=== PATIENT | female | born 1965 | race Caucasian/White ===

== ENCOUNTER 2019-04-10 18:03 | Observation (INO) | payer BC ==
[2019-04-10] MEDS ORDERED: Sodium Chloride 0.9% 2.5 ML Syringe FLUSH PRN (18:10)
[2019-04-10] MEDS ORDERED: Sodium Chloride 0.9% 10 ML Syringe FLUSH PRN (18:10)
[2019-04-10] MEDS ORDERED: Albuterol/Ipratropium 3.0-0.5 MG/3 ML Neb Soln NEB ONE (18:11)
[2019-04-10] MEDS ORDERED: methylPREDNISolone Sodium Succinate 125 MG/2 ML SDV IVPUSH ONE (18:11)
--- NOTE | 2019-04-10 18:14 | EDM.PDOC ---
ED HPI GENERAL MEDICAL PROBLEM - General Chief Complaint: Respiratory Problem Stated Complaint: PNEUMONIA SYMPTOMS Time Seen by Provider: 04/10/19 18:06 Source of Information: Reports: Patient History Limitations: Reports: No Limitations - History of Present Illness INITIAL COMMENTS - FREE TEXT/NARRATIVE: HISTORY AND PHYSICAL: History of present illness: Patient is a 53-year-old female who presents to the emergency room today with complaints of shortness of breath. She states her symptoms started approximately one month ago and have progressively gotten worse. She came to the emergency room today as she was unable to catch her breath after doing a DuoNeb treatment and she developed a subjective fever. She states she does have a history of pneumonia and sepsis. She does mention that she has blisters to her left palmar surface which she had "last time I had sepsis". Review of systems: As per history of present illness and below otherwise all systems reviewed and negative. Past medical history: As per history of present illness and as reviewed below otherwise noncontributory. Surgical history: As per history of present illness and as reviewed below otherwise noncontributory. Social history: See social history for further information Family history: As per history of present illness and as reviewed below otherwise noncontributory. Physical exam: General: Well-developed and well-nourished 53-year-old female. Alert and oriented. Nontoxic appearing and in no acute distress. HEENT: Atraumatic, normocephalic, pupils equal and reactive bilaterally, negative for conjunctival pallor or scleral icterus, mucous membranes moist, TMs normal bilaterally, throat clear, neck supple, nontender, trachea midline. No drooling or trismus noted. No meningeal signs. No hot potato voice noted. Lungs: Audible wheezing noted. Inspiratory and expiratory wheezing noted throughout, breath sounds equal bilaterally, chest nontender. Heart: S1S2, regular rate and rhythm without overt murmur Abdomen: Soft, nondistended, nontender. Negative for masses or hepatosplenomegaly. Negative for costovertebral tenderness. Skin: Intact, warm, dry. No lesions or rashes noted. Extremities: Atraumatic, moves all extremities per self without difficulty or deficits, negative for cords or calf pain. Neurovascular unremarkable. Neuro: Awake, alert, oriented. Cranial nerves II through XII unremarkable. Cerebellum unremarkable. Motor and sensory unremarkable throughout. Exam nonfocal. Notes: On room air patient is 90%. 2 L per nasal cannula was provided, currently 93%. Lung sounds have improved after the DuoNeb. Patient does have leukocytosis and x-ray that shows faint triangular in the right midlung which could represent a pulmonary nodule or minimal area of consolidation. Will add a d-dimer and CTA due to tachycardia. Blood cultures pending. CTA shows limited, nearly nondiagnostic evaluation for pulmonary emboli. No central pulmonary embolus seen. Irregular areas of ground-glass opacification and consolidation with a partial peribronchovascular distribution. Appearance is suggestive of bronchopneumonia. Mediastinal and right hilar adenopathy, presumed reactive to the pulmonary process.. Mild centrilobular emphysema. Dr. Singh was consult did on this patient. He is agreeable to keeping her for observation admission and antibiotics. Patient is aware and agreeable to plan of care. Diagnostics: CBC, CMP, EKG, chest x-ray, troponin, lactic acid, blood cultures 2 Therapeutics: Solu-Medrol, DuoNeb, Rocephin, Azithromax Impression: Hypoxemia Bronchopneumonia Plan: Observation admission with telemetry Definitive disposition and diagnosis as appropriate pending reevaluation and review of above. Chest Pain Score (Numeric/FACES): 4 - Related Data Allergies Allergy/AdvReac Type Severity Reaction Status Date / Time Penicillins Allergy Rash Verified 04/10/19 18:06 Home Meds: Home Meds Aspirin 81 mg PO DAILY 05/22/18 [History] Pnv No.122/Iron/Folic Acid [ Multi Tablet] 1 tab PO DAILY 05/22/18 [ History] Past Medical History [employer] History: Reports: Ectopic , Spontaneous - Past Surgical History Female Surgical History: Reports: Oophorectomy Other Female Surgeries/Procedures: R fallopian tube and ovary removal Social & Family History - Family History Family Medical History: Noncontributory - Caffeine Use Caffeine Use: Reports: Soda ED ROS GENERAL - Review of Systems Review Of Systems: ROS reveals no pertinent complaints other than HPI. ED EXAM, GENERAL - Physical Exam Exam: See Below (See dictation) Course - Vital Signs Last Recorded V/S: Last Vital Signs Temp 98.2 F 04/10/19 20:10 Pulse 104 H 04/10/19 20:10 Resp 22 H 04/10/19 20:10 BP 111/77 04/10/19 20:10 Pulse Ox 92 L 04/10/19 20:10 - Orders/Labs/Meds Orders: Active Orders 24 hr Category Date Time Status EKG Documentation Completion [RC] STAT Care 04/10/19 18:10 Active RT Aerosol Therapy [RC] ASDIRECTED Care 04/10/19 18:11 Active CULTURE BLOOD [BC] Stat Lab 04/10/19 18:15 Received CULTURE BLOOD [BC] Stat Lab 04/10/19 18:35 Received Sodium Chloride 0.9% [Saline Flush] Med 04/10/19 18:10 Active 10 ml FLUSH ASDIRECTED PRN Sodium Chloride 0.9% [Saline Flush] Med 04/10/19 18:10 Active 2.5 ml FLUSH ASDIRECTED PRN Blood Culture x2 Reflex Set [OM.PC] Stat Oth 04/10/19 18:10 Ordered Saline Lock Insert [OM.PC] Stat Oth 04/10/19 18:10 Ordered Medication Orders Sodium Chloride (Normal Saline) 1,000 mls @ 125 mls/hr IV STAT ONE Stop: 04/11/19 03:05 Last Admin: 04/10/19 19:09 Dose: 125 mls/hr Sodium Chloride (Saline Flush) 10 ml FLUSH ASDIRECTED PRN PRN Reason: Keep Vein Open Sodium Chloride (Saline Flush) 2.5 ml FLUSH ASDIRECTED PRN PRN Reason: Keep Vein Open Labs: Laboratory Tests 04/10/19 04/10/19 04/10/19 Range/Units 18:15 18:15 18:15 WBC 21.03 H (4.0-11.0) K/uL RBC 4.81 (4.30-5.90) M/uL Hgb 14.1 (12.0-16.0) g/dL Hct 43.7 (36.0-46.0) % MCV 90.9 (80.0-98.0) fL MCH 29.3 (27.0-32.0) pg MCHC 32.3 (31.0-37.0) g/dL RDW Std Deviation 49.4 (28.0-62.0) fl RDW Coeff of Sammy 15 (11.0-15.0) % Plt Count 338 (150-400) K/uL MPV 10.20 (7.40-12.00) fL Add Manual Diff YES Neutrophils % (Manual) 74 (48.0-80.0) % Band Neutrophils % 4 % Lymphocytes % (Manual) 17 (16.0-40.0) % Monocytes % (Manual) 5 (0.0-15.0) % Nucleated RBC % 0.0 /100WBC Absolute Seg Neuts 15.6 H (1.4-5.7) Band Neutrophils # 0.8 Lymphocytes # (Manual) 3.6 H (0.6-2.4) Monocytes # (Manual) 1.1 H (0.0-0.8) Nucleated RBCs # 0 K/uL Lactate 1.3 (0.20-2.00) mmol/L Sodium 140 (136-145) mmol/L Potassium 4.1 (3.5-5.1) mmol/L Chloride 103 (98-107) mmol/L Carbon Dioxide 26.1 (21.0-32.0) mmol/L BUN 13 (7.0-18.0) mg/dL Creatinine 1.0 (0.6-1.0) mg/dL Est Cr Clr Drug Dosing TNP Estimated GFR (MDRD) 58.5 ml/min Glucose 124 H (74-106) mg/dL Calcium 8.7 (8.5-10.1) mg/dL Total Bilirubin 0.2 (0.2-1.0) mg/dL AST 19 (15-37) IU/L ALT 25 (14-63) IU/L Alkaline Phosphatase 110 (46-116) U/L Troponin I < 0.050 (0.000-0.056) ng/mL Total Protein 7.0 (6.4-8.2) g/dL Albumin 2.9 L (3.4-5.0) g/dL Globulin 4.1 H (2.6-4.0) g/dL Albumin/Globulin Ratio 0.7 L (0.9-1.6) Meds: Medications Generic Name Dose Route Start Last Admin Trade Name Freq PRN Reason Stop Dose Admin Sodium Chloride 1,000 mls @ 125 mls/hr 04/10/19 19:06 04/10/19 19:09 Normal Saline IV 04/11/19 03:05 125 mls/hr STAT ONE Administration Sodium Chloride 10 ml 04/10/19 18:10 Saline Flush FLUSH ASDIRECTED PRN Keep Vein Open Sodium Chloride 2.5 ml 04/10/19 18:10 Saline Flush FLUSH ASDIRECTED PRN Keep Vein Open Discontinued Medications Generic Name Dose Route Start Last Admin Trade Name Wiltonq PRN Reason Stop Dose Admin Albuterol/Ipratropium 3 ml 04/10/19 18:11 04/10/19 18:59 Duoneb 3.0-0.5 Mg/3 Ml NEB 04/10/19 18:12 3 ml ONETIME ONE Administration Azithromycin 500 mg 04/10/19 19:00 04/10/19 19:10 Zithromax PO 04/10/19 19:01 500 mg NOW ONE Administration Ceftriaxone Sodium/Dextrose 1 50 mls @ 100 mls/hr 04/10/19 18:58 04/10/19 19: 10 gm/ Premix IV 04/10/19 19:27 100 mls/hr ONETIME ONE Administration Iopamidol 80 ml 04/10/19 19:48 04/10/19 19:48 Isovue Multipack-370 (76%) IVPUSH 04/10/19 19:49 80 ml ONETIME STA Administration Methylprednisolone Sodium Succinate 125 mg 04/10/19 18:11 04/10/19 18:59 Solu-Medrol IVPUSH 04/10/19 18:12 125 mg ONETIME ONE Administration Departure - Departure Time of Disposition: 21:05 Disposition: Refer to Observation Clinical Impression: Bronchopneumonia, Hypoxemia - Discharge Information - My Orders Last 24 Hours: My Active Orders 04/10/19 18:10 EKG Documentation Completion [RC] STAT Sodium Chloride 0.9% [Saline Flush] 10 ml FLUSH ASDIRECTED PRN Sodium Chloride 0.9% [Saline Flush] 2.5 ml FLUSH ASDIRECTED PRN Blood Culture x2 Reflex Set [OM.PC] Stat Saline Lock Insert [OM.PC] Stat 04/10/19 18:11 RT Aerosol Therapy [RC] ASDIRECTED 04/10/19 18:15 CULTURE BLOOD [BC] Stat 04/10/19 18:35 CULTURE BLOOD [BC] Stat - Assessment/Plan Last 24 Hours: My Active Orders 04/10/19 18:10 EKG Documentation Completion [RC] STAT Sodium Chloride 0.9% [Saline Flush] 10 ml FLUSH ASDIRECTED PRN Sodium Chloride 0.9% [Saline Flush] 2.5 ml FLUSH ASDIRECTED PRN Blood Culture x2 Reflex Set [OM.PC] Stat Saline Lock Insert [OM.PC] Stat 04/10/19 18:11 RT Aerosol Therapy [RC] ASDIRECTED 04/10/19 18:15 CULTURE BLOOD [BC] Stat 04/10/19 18:35 CULTURE BLOOD [BC] Stat
--- NOTE | 2019-04-10 18:51 | CR ---
INDICATION: Chest pain and shortness of breath TECHNIQUE: Chest 1 view COMPARISON: None FINDINGS: Cardiovascular and mediastinum: Heart size and vasculature are normal in caliber and appearance. Lungs and pleural spaces: No pleural effusion or pneumothorax. Faint triangular area right midlung measuring 8 millimeters. Bones and soft tissues: No significant findings. IMPRESSION: Faint triangular in the right midlung which could represent a pulmonary nodule or minimal area of consolidation. Follow-up chest x-ray suggested in 1 month to assess for resolution. Dictated by Antonino Dutton MD @ Apr 10 2019 6:49PM Signed by Dr. Antonino Dutton @ Apr 10 2019 6:50PM
[2019-04-10 18:52] LABS: BLOOD UREA NITROGEN,BUN 13 mg/dL (7.0-18.0); CARBON DIOXIDE,CO2 26.1 mmol/L (21.0-32.0); CHLORIDE,CL 103 mmol/L (98-107); GLUCOSE RANDOM 124 mg/dL (74-106); POTASSIUM,K 4.1 mmol/L (3.5-5.1); SODIUM,NA 140 mmol/L (136-145)
[2019-04-10] MEDS ORDERED: cefTRIAXone 1 GM in Premix Bag 1 BAG IV ONE (18:58)
[2019-04-10] MEDS ORDERED: Azithromycin 250 MG Tab PO ONE (19:00)
[2019-04-10] MEDS ORDERED: Sodium Chloride 0.9% 1,000 ML IV ONE (19:06)
[2019-04-10] MEDS ORDERED: Iopamidol 755 MG/ML 500 ML Multipack Bottle IVPUSH STA (19:48)
--- NOTE | 2019-04-10 20:31 | CT ---
INDICATION: Chest pain and shortness of breath. TECHNIQUE: CT chest PE was acquired with 80 cc Isovue 370 intravenous contrast. COMPARISON: None. FINDINGS: Heart and vasculature: Inadequate opacification of the pulmonary artery. Examination is only considered adequate at the central vessels and nondiagnostic for more distal vasculature. No proximal pulmonary embolus seen. Thoracic aorta is normal in caliber. No pericardial effusion. Lungs and pleural: No pleural effusion or pneumothorax. Mild centrilobular emphysema with bilateral areas of irregular ground-glass as well as consolidation. Distribution appears to be peribronchovascular. Lymph nodes/mediastinum: Subcarinal lymph nodes measure up to 11 millimeters. Right hilar lymph nodes measure 12 millimeters. Chest wall: No masses. Upper abdomen: Normal. Bones: Unremarkable for age. IMPRESSION: 1. Limited, nearly nondiagnostic evaluation for pulmonary emboli. No central pulmonary embolus seen. 2. Irregular areas of ground-glass opacification and consolidation with a partial peribronchovascular distribution. Appearance is suggestive of bronchopneumonia. 3. Mediastinal and right hilar adenopathy, presumed reactive to the pulmonary process. 4. Mild centrilobular emphysema. Please note that all CT scans at this facility use dose modulation, iterative reconstruction, and/or weight-based dosing when appropriate to reduce radiation dose to as low as reasonably achievable. Dictated by Antonino Dutton MD @ Apr 10 2019 8:23PM Signed by Dr. Antonino Dutton @ Apr 10 2019 8:29PM
[2019-04-10] MEDS ORDERED: oxyCODONE 5 MG Tab PO PRN (21:46)
[2019-04-10] MEDS ORDERED: Acetaminophen 325 MG Tab PO PRN (21:47)
[2019-04-11] MEDS: Albuterol/Ipratropium 3.0-0.5 MG/3 ML Neb Soln NEB PRN ×2 (05:22→10:02)
[2019-04-11 06:47] LABS: BLOOD UREA NITROGEN,BUN 17 mg/dL (7.0-18.0); CARBON DIOXIDE,CO2 25.9 mmol/L (21.0-32.0); CHLORIDE,CL 104 mmol/L (98-107); GLUCOSE RANDOM 165 mg/dL (74-106); POTASSIUM,K 4.4 mmol/L (3.5-5.1); SODIUM,NA 140 mmol/L (136-145)
--- NOTE | 2019-04-11 08:58 | PCM.HP.2 ---
Addendum entered and electronically signed by Terri Boyd MD 04/11/19 10:29 : Assessment: Leukocytosis : improving since admission Elevated D-dimer: negative for emboli via Angiogram Lactate WNL Hyperglycemia Original Note: <Terri Boyd - Last Filed: 04/11/19 10:01> H&P History of Present Illness - General Date of Service: 04/11/19 Admit Problem/Dx: Admission Diagnosis/Problem Admission Diagnosis/Problem Hypoxemia Patient is a 53-year-old female with a past medical history of asthma, former smoker, recent after age of 47 via IVF; presenting to [facility] with increasing shortness of breath, mildly productive cough, subjective fever and chills and wheezing 5-6 days. Consult to telemedicine; was prescribed Mucinex and Robitussin with moderate improvement of her cough however shortness of breath especially with exertion had worsened. Patient does endorse multiple pneumonias over the course of 15 years for your intervals without any obvious etiologies. Patient was a former smoker; smoked 1 pack per day since the age of 17 to the age of 29; states however she does not use tobacco products for many years now. Of note, states her son had a cough for about 2 weeks without any other symptoms and has been improving. Otherwise has no other concerns at this time. Chest Pain Score (Numeric/FACES): 4 - Related Data Allergies/Adverse Reactions: Allergies Allergy/AdvReac Type Severity Reaction Status Date / Time Penicillins Allergy Rash Verified 04/10/19 21:42 Home Medications: Home Meds Albuterol Sulfate [Proair Hfa] 2 puff INH Q6HR PRN 04/10/19 [History] Ascorbic Acid [Vitamin C] 1,000 mg PO DAILY 04/10/19 [History] Biotin 5,000 mcg PO DAILY 04/10/19 [History] Cholecalciferol (Vitamin D3) [Vitamin D] 5,000 units PO DAILY 04/10/19 [History] Ibuprofen 800 mg PO Q6HR PRN 04/10/19 [History] Past Medical History HEENT History: Reports: Impaired Vision Cardiovascular History: Reports: Heart Murmur Respiratory History: Reports: Pneumonia, Recurrent [employer] History: Reports: Ectopic , Spontaneous Endocrine/Metabolic History: Reports: Diabetes, Gestational - Infectious Disease History Infectious Disease History: Reports: Scarlet Fever - Past Surgical History HEENT Surgical History: Reports: None Cardiovascular Surgical History: Reports: None Respiratory Surgical History: Reports: None Female Surgical History: Reports: Oophorectomy Other Female Surgeries/Procedures: R fallopian tube and ovary removal Endocrine Surgical History: Reports: None Social & Family History - Family History Family Medical History: Noncontributory - Tobacco Use Smoking Status *Q: Former Smoker Years of Tobacco use: 10 Used Tobacco, but Quit: Yes Month/Year Tobacco Last Used: 1991 Second Hand Smoke Exposure: No - Caffeine Use Caffeine Use: Reports: Coffee, Energy Drinks - Recreational Drug Use Recreational Drug Use: No H&P Review of Systems - Review of Systems: Review Of Systems: See Below General: Reports: Chills. Denies: Fever HEENT: Reports: Post Nasal Drip, Sinus Congestion. Denies: Sore Throat Pulmonary: Reports: Wheezing, Cough, Sputum. Denies: Shortness of Breath Cardiovascular: Reports: Dyspnea on Exertion. Denies: Chest Pain, Palpitations Gastrointestinal: Reports: Diarrhea. Denies: Abdominal Pain, Anorexia, Constipation, Nausea Genitourinary: Reports: No Symptoms Musculoskeletal: Reports: No Symptoms Skin: Reports: Rash (left hand healing blisters ) Psychiatric: Reports: No Symptoms Neurological: Reports: No Symptoms Exam - Exam Exam: See Below - Vital Signs Vital Signs: Last Vital Signs Temp 97.8 F 04/11/19 08:00 Pulse 82 04/11/19 08:00 Resp 20 04/11/19 08:00 BP 106/63 04/11/19 08:00 Pulse Ox 92 L 04/11/19 08:00 Weight: 78.789 kg - Exam Quality Assessment: Supplemental Oxygen General: Alert, Oriented HEENT: Conjunctiva Clear, EOMI, Mucosa Moist & [place] Neck: Supple, Trachea Midline Lungs: Crackles, Rhonchi, Wheezing (inspiratory and expiratory wheezing in all lung [place] ) GI/Abdominal Exam: Normal Bowel Sounds, Soft, Non-Tender, No Organomegaly Back Exam: Normal Inspection Extremities: Normal Inspection, Normal Range of Motion Skin: Warm, Dry, Intact Neurological: Cranial Nerves Intact Neuro Extensive - Mental Status: Alert, Oriented x3, Normal Mood/Affect Psychiatric: Alert, Normal Affect, Normal Mood - Patient Data Lab Results Last 24 hrs: Laboratory Results - last 24 hr 04/10/19 04/10/19 04/10/19 Range/Units 18:15 18:15 18:15 WBC 21.03 H (4.0-11.0) K/uL RBC 4.81 (4.30-5.90) M/uL Hgb 14.1 (12.0-16.0) g/dL Hct 43.7 (36.0-46.0) % MCV 90.9 (80.0-98.0) fL MCH 29.3 (27.0-32.0) pg MCHC 32.3 (31.0-37.0) g/dL RDW Std Deviation 49.4 (28.0-62.0) fl RDW Coeff of Sammy 15 (11.0-15.0) % Plt Count 338 (150-400) K/uL MPV 10.20 (7.40-12.00) fL Neut % (Auto) (48.0-80.0) % Lymph % (Auto) (16.0-40.0) % [place] % (Auto) (0.0-15.0) % Eos % (Auto) (0.0-7.0) % Baso % (Auto) (0.0-1.5) % Neut # (Auto) (1.4-5.7) K/uL Lymph # (Auto) (0.6-2.4) K/uL [place] # (Auto) (0.0-0.8) K/uL Eos # (Auto) (0.0-0.7) K/uL Baso # (Auto) (0.0-0.1) K/uL Add Manual Diff YES Neutrophils % (Manual) 74 (48.0-80.0) % Band Neutrophils % 4 % Lymphocytes % (Manual) 17 (16.0-40.0) % Monocytes % (Manual) 5 (0.0-15.0) % Nucleated RBC % 0.0 /100WBC Absolute Seg Neuts 15.6 H (1.4-5.7) Band Neutrophils # 0.8 Lymphocytes # (Manual) 3.6 H (0.6-2.4) Monocytes # (Manual) 1.1 H (0.0-0.8) Nucleated RBCs # 0 K/uL D-Dimer, Quantitative (0.0-0.50) mg/L FEU Lactate 1.3 (0.20-2.00) mmol/L Sodium 140 (136-145) mmol/L Potassium 4.1 (3.5-5.1) mmol/L Chloride 103 (98-107) mmol/L Carbon Dioxide 26.1 (21.0-32.0) mmol/L BUN 13 (7.0-18.0) mg/dL Creatinine 1.0 (0.6-1.0) mg/dL Est Cr Clr Drug Dosing TNP Estimated GFR (MDRD) 58.5 ml/min Glucose 124 H (74-106) mg/dL Calcium 8.7 (8.5-10.1) mg/dL Total Bilirubin 0.2 (0.2-1.0) mg/dL AST 19 (15-37) IU/L ALT 25 (14-63) IU/L Alkaline Phosphatase 110 (46-116) U/L Troponin I < 0.050 (0.000-0.056) ng/mL Total Protein 7.0 (6.4-8.2) g/dL Albumin 2.9 L (3.4-5.0) g/dL Globulin 4.1 H (2.6-4.0) g/dL Albumin/Globulin Ratio 0.7 L (0.9-1.6) 04/10/19 04/11/19 04/11/19 Range/Units 19:20 06:03 06:03 WBC 17.87 H (4.0-11.0) K/uL RBC 4.70 (4.30-5.90) M/uL Hgb 13.5 (12.0-16.0) g/dL Hct 42.7 (36.0-46.0) % MCV 90.9 (80.0-98.0) fL MCH 28.7 (27.0-32.0) pg MCHC 31.6 (31.0-37.0) g/dL RDW Std Deviation 48.8 (28.0-62.0) fl RDW Coeff of Sammy 15 (11.0-15.0) % Plt Count 363 (150-400) K/uL MPV 9.80 (7.40-12.00) fL Neut % (Auto) 89.7 H (48.0-80.0) % Lymph % (Auto) 8.9 L (16.0-40.0) % [place] % (Auto) 1.3 (0.0-15.0) % Eos % (Auto) 0.0 (0.0-7.0) % Baso % (Auto) 0.1 (0.0-1.5) % Neut # (Auto) 16.0 H (1.4-5.7) K/uL Lymph # (Auto) 1.6 (0.6-2.4) K/uL [place] # (Auto) 0.2 (0.0-0.8) K/uL Eos # (Auto) 0.0 (0.0-0.7) K/uL Baso # (Auto) 0.0 (0.0-0.1) K/uL Add Manual Diff Neutrophils % (Manual) (48.0-80.0) % Band Neutrophils % % Lymphocytes % (Manual) (16.0-40.0) % Monocytes % (Manual) (0.0-15.0) % Nucleated RBC % 0.0 /100WBC Absolute Seg Neuts (1.4-5.7) Band Neutrophils # Lymphocytes # (Manual) (0.6-2.4) Monocytes # (Manual) (0.0-0.8) Nucleated RBCs # 0 K/uL D-Dimer, Quantitative 0.55 H (0.0-0.50) mg/L FEU Lactate (0.20-2.00) mmol/L Sodium 140 (136-145) mmol/L Potassium 4.4 (3.5-5.1) mmol/L Chloride 104 (98-107) mmol/L Carbon Dioxide 25.9 (21.0-32.0) mmol/L BUN 17 (7.0-18.0) mg/dL Creatinine 0.8 (0.6-1.0) mg/dL Est Cr Clr Drug Dosing 71.84 Estimated GFR (MDRD) > 60.0 ml/min Glucose 165 H (74-106) mg/dL Calcium 8.6 (8.5-10.1) mg/dL Total Bilirubin 0.2 (0.2-1.0) mg/dL AST 14 L (15-37) IU/L ALT 24 (14-63) IU/L Alkaline Phosphatase 105 (46-116) U/L Troponin I (0.000-0.056) ng/mL Total Protein 6.9 (6.4-8.2) g/dL Albumin 2.7 L (3.4-5.0) g/dL Globulin 4.2 H (2.6-4.0) g/dL Albumin/Globulin Ratio 0.6 L (0.9-1.6) Result Diagrams: 04/11/19 06:03 04/11/19 06:03 - Problem List (1) Bronchopneumonia SNOMED Code(s): 885337522 ICD Code: J18.0 - BRONCHOPNEUMONIA, UNSPECIFIED ORGANISM Status: Acute Current Visit: Yes (2) Hypoxemia SNOMED Code(s): 198119936 ICD Code: R09.02 - HYPOXEMIA Status: Acute Current Visit: Yes Problem List Initiated/Reviewed/Updated: Yes Orders Last 24hrs: Active Orders 24 hr Category Date Time Status Admission Status [Patient Status] [ADT] Stat ADT 04/10/19 19:04 Active Cardiac Monitoring [RC] . DIRECTED Care 04/10/19 19:04 Active Oxygen Therapy Adult [Oxygen Therapy] [RC] ASDIRECTED Care 04/10/19 21:54 Active RT Aerosol Therapy [RC] ASDIRECTED Care 04/10/19 18:11 Active Regular Diet [DIET] Diet 04/11/19 Breakfast Active CULTURE BLOOD [BC] Stat Lab 04/10/19 18:15 Received CULTURE BLOOD [BC] Stat Lab 04/10/19 18:35 Received Acetaminophen [Tylenol] Med 04/10/19 21:47 Active 650 mg PO Q6H PRN Albuterol/Ipratropium [DuoNeb 3.0-0.5 MG/3 ML] Med 04/10/19 21:58 Active 3 ml NEB Q4HRRT PRN Levofloxacin/Dextrose 5%-Water [Levaquin in D5W 500 MG/ Med 04/11/19 09:00 Active 100 ML] 500 mg Premix Bag 1 bag IV Q24H Sodium Chloride 0.9% [Normal Saline] 1,000 ml Med 04/10/19 22:00 Active IV ASDIRECTED Sodium Chloride 0.9% [Saline Flush] Med 04/10/19 18:10 Active 10 ml FLUSH ASDIRECTED PRN Sodium Chloride 0.9% [Saline Flush] Med 04/10/19 18:10 Active 2.5 ml FLUSH ASDIRECTED PRN oxyCODONE Med 04/10/19 21:46 Active 5 mg PO Q6H PRN Blood Culture x2 Reflex Set [OM.PC] Stat Oth 04/10/19 18:10 Ordered Saline Lock Insert [OM.PC] Stat Oth 04/10/19 18:10 Ordered Medication Orders Acetaminophen (Tylenol) 650 mg PO Q6H PRN PRN Reason: Pain/Fever Albuterol/Ipratropium (Duoneb 3.0-0.5 Mg/3 Ml) 3 ml NEB Q4HRRT PRN PRN Reason: Wheezing Last Admin: 04/11/19 05:22 Dose: 3 ml Levofloxacin/Dextrose 500 mg/ (Premix) 100 mls @ 100 mls/hr IV Q24H ANASTASIA Sodium Chloride (Normal Saline) 1,000 mls @ 75 mls/hr IV ASDIRECTED ANASTASIA Oxycodone HCl (Oxycodone) 5 mg PO Q6H PRN PRN Reason: Pain Sodium Chloride (Saline Flush) 10 ml FLUSH ASDIRECTED PRN PRN Reason: Keep Vein Open Sodium Chloride (Saline Flush) 2.5 ml FLUSH ASDIRECTED PRN PRN Reason: Keep Vein Open Assessment/Plan Comment:: Assessment: 1. Acute hypoxic respiratory failure secondary to bronchopneumonia 2. PMH: Asthma, x 3 after age 47, obesity, former tobacco user Plan: ADmit to observation. Full code, Intake output per routine. Vitals per routine. telemetry. GI prophylaxis: pantoprazole 40 daily. DVT prophylaxis: 40 lovenox daily. Diet: heart healthy. Activity : up ad cesar 1. Initiate patient on Ceftriaxone and azithromycin. Continue duonebs q4hrs per RT. Supplemental O2. CXR: ground glass opacities w/ right middle lobe infiltrate 2. Concerns for etiology for repeat CAP; will consider immunoglobulin assay. 3. PRN: tylenol, colace, restoril, guaifenesin <Rashid Singh - Last Filed: 04/11/19 11:17> H&P History of Present Illness - General Admit Problem/Dx: Admission Diagnosis/Problem Admission Diagnosis/Problem Hypoxemia I have seen and examined the patient independently of medical scientist, Dr. Oliver MD. I have reviewed and agree with the plan of care as outlined for this patient by him. I have discussed the case with him. Please see orders. Exam - Vital Signs Vital Signs: Last Vital Signs Temp 36.6 C 04/11/19 08:00 Pulse 82 04/11/19 08:00 Resp 20 04/11/19 08:00 BP 106/63 04/11/19 08:00 Pulse Ox 92 L 04/11/19 08:00 - Patient Data Lab Results Last 24 hrs: Laboratory Results - last 24 hr 04/10/19 04/10/19 04/10/19 Range/Units 18:15 18:15 18:15 WBC 21.03 H (4.0-11.0) K/uL RBC 4.81 (4.30-5.90) M/uL Hgb 14.1 (12.0-16.0) g/dL Hct 43.7 (36.0-46.0) % MCV 90.9 (80.0-98.0) fL MCH 29.3 (27.0-32.0) pg MCHC 32.3 (31.0-37.0) g/dL RDW Std Deviation 49.4 (28.0-62.0) fl RDW Coeff of Sammy 15 (11.0-15.0) % Plt Count 338 (150-400) K/uL MPV 10.20 (7.40-12.00) fL Neut % (Auto) (48.0-80.0) % Lymph % (Auto) (16.0-40.0) % [place] % (Auto) (0.0-15.0) % Eos % (Auto) (0.0-7.0) % Baso % (Auto) (0.0-1.5) % Neut # (Auto) (1.4-5.7) K/uL Lymph # (Auto) (0.6-2.4) K/uL [place] # (Auto) (0.0-0.8) K/uL Eos # (Auto) (0.0-0.7) K/uL Baso # (Auto) (0.0-0.1) K/uL Add Manual Diff YES Neutrophils % (Manual) 74 (48.0-80.0) % Band Neutrophils % 4 % Lymphocytes % (Manual) 17 (16.0-40.0) % Monocytes % (Manual) 5 (0.0-15.0) % Nucleated RBC % 0.0 /100WBC Absolute Seg Neuts 15.6 H (1.4-5.7) Band Neutrophils # 0.8 Lymphocytes # (Manual) 3.6 H (0.6-2.4) Monocytes # (Manual) 1.1 H (0.0-0.8) Nucleated RBCs # 0 K/uL D-Dimer, Quantitative (0.0-0.50) mg/L FEU Lactate 1.3 (0.20-2.00) mmol/L Sodium 140 (136-145) mmol/L Potassium 4.1 (3.5-5.1) mmol/L Chloride 103 (98-107) mmol/L Carbon Dioxide 26.1 (21.0-32.0) mmol/L BUN 13 (7.0-18.0) mg/dL Creatinine 1.0 (0.6-1.0) mg/dL Est Cr Clr Drug Dosing TNP Estimated GFR (MDRD) 58.5 ml/min Glucose 124 H (74-106) mg/dL Calcium 8.7 (8.5-10.1) mg/dL Total Bilirubin 0.2 (0.2-1.0) mg/dL AST 19 (15-37) IU/L ALT 25 (14-63) IU/L Alkaline Phosphatase 110 (46-116) U/L Troponin I < 0.050 (0.000-0.056) ng/mL Total Protein 7.0 (6.4-8.2) g/dL Albumin 2.9 L (3.4-5.0) g/dL Globulin 4.1 H (2.6-4.0) g/dL Albumin/Globulin Ratio 0.7 L (0.9-1.6) 04/10/19 04/11/19 04/11/19 Range/Units 19:20 06:03 06:03 WBC 17.87 H (4.0-11.0) K/uL RBC 4.70 (4.30-5.90) M/uL Hgb 13.5 (12.0-16.0) g/dL Hct 42.7 (36.0-46.0) % MCV 90.9 (80.0-98.0) fL MCH 28.7 (27.0-32.0) pg MCHC 31.6 (31.0-37.0) g/dL RDW Std Deviation 48.8 (28.0-62.0) fl RDW Coeff of Sammy 15 (11.0-15.0) % Plt Count 363 (150-400) K/uL MPV 9.80 (7.40-12.00) fL Neut % (Auto) 89.7 H (48.0-80.0) % Lymph % (Auto) 8.9 L (16.0-40.0) % [place] % (Auto) 1.3 (0.0-15.0) % Eos % (Auto) 0.0 (0.0-7.0) % Baso % (Auto) 0.1 (0.0-1.5) % Neut # (Auto) 16.0 H (1.4-5.7) K/uL Lymph # (Auto) 1.6 (0.6-2.4) K/uL [place] # (Auto) 0.2 (0.0-0.8) K/uL Eos # (Auto) 0.0 (0.0-0.7) K/uL Baso # (Auto) 0.0 (0.0-0.1) K/uL Add Manual Diff Neutrophils % (Manual) (48.0-80.0) % Band Neutrophils % % Lymphocytes % (Manual) (16.0-40.0) % Monocytes % (Manual) (0.0-15.0) % Nucleated RBC % 0.0 /100WBC Absolute Seg Neuts (1.4-5.7) Band Neutrophils # Lymphocytes # (Manual) (0.6-2.4) Monocytes # (Manual) (0.0-0.8) Nucleated RBCs # 0 K/uL D-Dimer, Quantitative 0.55 H (0.0-0.50) mg/L FEU Lactate (0.20-2.00) mmol/L Sodium 140 (136-145) mmol/L Potassium 4.4 (3.5-5.1) mmol/L Chloride 104 (98-107) mmol/L Carbon Dioxide 25.9 (21.0-32.0) mmol/L BUN 17 (7.0-18.0) mg/dL Creatinine 0.8 (0.6-1.0) mg/dL Est Cr Clr Drug Dosing 71.84 Estimated GFR (MDRD) > 60.0 ml/min Glucose 165 H (74-106) mg/dL Calcium 8.6 (8.5-10.1) mg/dL Total Bilirubin 0.2 (0.2-1.0) mg/dL AST 14 L (15-37) IU/L ALT 24 (14-63) IU/L Alkaline Phosphatase 105 (46-116) U/L Troponin I (0.000-0.056) ng/mL Total Protein 6.9 (6.4-8.2) g/dL Albumin 2.7 L (3.4-5.0) g/dL Globulin 4.2 H (2.6-4.0) g/dL Albumin/Globulin Ratio 0.6 L (0.9-1.6) Result Diagrams: 04/11/19 06:03 04/11/19 06:03 Orders Last 24hrs: Active Orders 24 hr Category Date Time Status Admission Status [Patient Status] [ADT] Stat ADT 04/10/19 19:04 Active Cardiac Monitoring [RC] . DIRECTED Care 04/10/19 19:04 Active Oxygen Therapy Adult [Oxygen Therapy] [RC] ASDIRECTED Care 04/10/19 21:54 Active RT Aerosol Therapy [RC] ASDIRECTED Care 04/10/19 18:11 Active RT Aerosol Therapy [RC] ASDIRECTED Care 04/11/19 10:09 Active Regular Diet [DIET] Diet 04/11/19 Breakfast Active CULTURE BLOOD [BC] Stat Lab 04/10/19 18:15 Received CULTURE BLOOD [BC] Stat Lab 04/10/19 18:35 Received GLYCOSYLATED HEMOGLOBIN,HGBA1C [CHEM] Routine Lab 04/11/19 06:03 Received LEGIONELLA ANTIGEN [RM] Routine Lab 04/11/19 09:30 Ordered Acetaminophen [Tylenol] Med 04/10/19 21:47 Active 650 mg PO Q6H PRN Albuterol/Ipratropium [DuoNeb 3.0-0.5 MG/3 ML] Med 04/11/19 14:00 Active 3 ml NEB Q4HRRT Albuterol/Ipratropium [DuoNeb 3.0-0.5 MG/3 ML] Med 04/10/19 21:58 Active 3 ml NEB Q4HRRT PRN Azithromycin [Zithromax] 500 mg Med 04/11/19 19:30 Active Sodium Chloride 0.9% [Normal Saline (AdvBag)] 250 ml IV DAILY@1930 Sodium Chloride 0.9% [Normal Saline] 1,000 ml Med 04/10/19 22:00 Active IV ASDIRECTED Sodium Chloride 0.9% [Saline Flush] Med 04/10/19 18:10 Active 10 ml FLUSH ASDIRECTED PRN Sodium Chloride 0.9% [Saline Flush] Med 04/10/19 18:10 Active 2.5 ml FLUSH ASDIRECTED PRN cefTRIAXone [Rocephin in Dextrose,Iso-Osm 1 GM/50 ML] 1 Med 04/11/19 19:00 Active gm Premix Bag 1 bag IV Q24H oxyCODONE Med 04/10/19 21:46 Active 5 mg PO Q6H PRN Blood Culture x2 Reflex Set [OM.PC] Stat Ot 04/10/19 18:10 Ordered Saline Lock Insert [OM.PC] Stat Ot 04/10/19 18:10 Ordered Medication Orders Acetaminophen (Tylenol) 650 mg PO Q6H PRN PRN Reason: Pain/Fever Albuterol/Ipratropium (Duoneb 3.0-0.5 Mg/3 Ml) 3 ml NEB Q4HRRT PRN PRN Reason: Wheezing Last Admin: 04/11/19 10:02 Dose: 3 ml Admin: 04/11/19 05:22 Dose: 3 ml Albuterol/Ipratropium (Duoneb 3.0-0.5 Mg/3 Ml) 3 ml NEB Q4HRRT [facility] Sodium Chloride (Normal Saline) 1,000 mls @ 75 mls/hr IV ASDIRECTED ANASTASIA Last Admin: 04/11/19 09:48 Dose: 75 mls/hr Ceftriaxone Sodium/Dextrose 1 (gm/ Premix) 50 mls @ 100 mls/hr IV Q24H ANASTASIA Azithromycin 500 mg/ Sodium (Chloride) 250 mls @ 250 mls/hr IV DAILY@1930 ANASTASIA Oxycodone HCl (Oxycodone) 5 mg PO Q6H PRN PRN Reason: Pain Sodium Chloride (Saline Flush) 10 ml FLUSH ASDIRECTED PRN PRN Reason: Keep Vein Open Sodium Chloride (Saline Flush) 2.5 ml FLUSH ASDIRECTED PRN PRN Reason: Keep Vein Open
[2019-04-11] MEDS ORDERED: Levofloxacin/Dextrose 5%-Water 500 MG in Premix Bag 1 BAG IV SCH (09:00)
[2019-04-11] MEDS: Sodium Chloride 0.9% 1,000 ML IV SCH ×2 (09:48→23:50)
[2019-04-11 12:53] LABS: HEMOGLOBIN A1C 5.7 % (4.5-6.2)
[2019-04-11] MEDS: Albuterol/Ipratropium 3.0-0.5 MG/3 ML Neb Soln NEB SCH ×3 (14:04→21:21)
[2019-04-11 17:13] LABS: BLOOD UREA NITROGEN,BUN 23 mg/dL (7.0-18.0); CARBON DIOXIDE,CO2 27.2 mmol/L (21.0-32.0); CHLORIDE,CL 106 mmol/L (98-107); GLUCOSE RANDOM 124 mg/dL (74-106); SODIUM,NA 143 mmol/L (136-145)
[2019-04-11] MEDS: cefTRIAXone 1 GM in Premix Bag 1 BAG IV SCH (18:24)
[2019-04-11] MEDS: Azithromycin 500 MG in Sodium Chloride 0.9% 250 ML IV SCH (19:26)
[2019-04-12] MEDS: Albuterol/Ipratropium 3.0-0.5 MG/3 ML Neb Soln NEB SCH ×6 (02:43→21:23)
--- NOTE | 2019-04-12 10:34 | PCM.PN ---
<Terri Boyd - Last Filed: 04/12/19 10:28> - General Info Date of Service: 04/12/19 Subjective Update: Patient seen at bedside: c/o shortness of breath, interval improvement since yesterday however no acute distress. denies any chest pain , headaches or diarrhea /constipation. Still having occasional productive cough spasms. - Review of Systems General: Denies: Fever, Weakness, Malaise, Chills Pulmonary: Reports: Shortness of Breath, Cough, Sputum, Wheezing Cardiovascular: Denies: Chest Pain, Dyspnea on Exertion, Edema Gastrointestinal: Denies: Abdominal Pain, Constipation, Decreased Appetite, Diarrhea, Nausea, Vomiting Genitourinary: Denies: Dysuria, Frequency, Burning Musculoskeletal: Denies: Back Pain Neurological: Denies: Confusion, Dizziness, Headache Psychiatric: Denies: Confusion, Depression - Patient Data Vitals - Most Recent: Last Vital Signs Temp 97.2 F 04/12/19 07:27 Pulse 77 04/12/19 07:27 Resp 20 04/12/19 07:27 BP 96/67 04/12/19 07:27 Pulse Ox 94 L 04/12/19 07:27 Weight - Most Recent: 78.789 kg I&O - Last 24 Hours: Intake & Output 04/11/19 04/12/19 04/12/19 22:59 06:59 14:59 Intake Total 2124 2026 Output Total 750 300 Balance 1374 1726 Lab Results Last 24 Hours: Laboratory Results - last 24 hr 04/11/19 04/11/19 04/11/19 Range/Units 06:03 16:43 16:43 WBC 19.26 H (4.0-11.0) K/uL RBC 4.52 (4.30-5.90) M/uL Hgb 13.1 (12.0-16.0) g/dL Hct 41.4 (36.0-46.0) % MCV 91.6 (80.0-98.0) fL MCH 29.0 (27.0-32.0) pg MCHC 31.6 (31.0-37.0) g/dL RDW Std Deviation 50.1 (28.0-62.0) fl RDW Coeff of Sammy 15 (11.0-15.0) % Plt Count 356 (150-400) K/uL MPV 9.90 (7.40-12.00) fL Neut % (Auto) 74.4 (48.0-80.0) % Lymph % (Auto) 17.9 (16.0-40.0) % [place] % (Auto) 7.4 (0.0-15.0) % Eos % (Auto) 0.1 (0.0-7.0) % Baso % (Auto) 0.2 (0.0-1.5) % Neut # (Auto) 14.4 H (1.4-5.7) K/uL Lymph # (Auto) 3.4 H (0.6-2.4) K/uL [place] # (Auto) 1.4 H (0.0-0.8) K/uL Eos # (Auto) 0.0 (0.0-0.7) K/uL Baso # (Auto) 0.0 (0.0-0.1) K/uL Nucleated RBC % 0.0 /100WBC Nucleated RBCs # 0 K/uL Sodium 143 (136-145) mmol/L Potassium 4.0 (3.5-5.1) mmol/L Chloride 106 (98-107) mmol/L Carbon Dioxide 27.2 (21.0-32.0) mmol/L BUN 23 H (7.0-18.0) mg/dL Creatinine 0.9 (0.6-1.0) mg/dL Est Cr Clr Drug Dosing 63.86 mL/min Estimated GFR (MDRD) > 60.0 ml/min Glucose 124 H (74-106) mg/dL Hemoglobin A1c 5.7 (4.5-6.2) % Calcium 10.0 (8.5-10.1) mg/dL Total Bilirubin 0.1 L (0.2-1.0) mg/dL AST 15 (15-37) IU/L ALT 22 (14-63) IU/L Alkaline Phosphatase 98 (46-116) U/L Total Protein 6.9 (6.4-8.2) g/dL Albumin 2.7 L (3.4-5.0) g/dL Globulin 4.2 H (2.6-4.0) g/dL Albumin/Globulin Ratio 0.6 L (0.9-1.6) 04/12/19 Range/Units 09:00 WBC 11.45 H (4.0-11.0) K/uL RBC 4.12 L (4.30-5.90) M/uL Hgb 12.0 (12.0-16.0) g/dL Hct 38.1 (36.0-46.0) % MCV 92.5 (80.0-98.0) fL MCH 29.1 (27.0-32.0) pg MCHC 31.5 (31.0-37.0) g/dL RDW Std Deviation 50.8 (28.0-62.0) fl RDW Coeff of Sammy 15 (11.0-15.0) % Plt Count 337 (150-400) K/uL MPV 9.90 (7.40-12.00) fL Neut % (Auto) 62.5 (48.0-80.0) % Lymph % (Auto) 28.9 (16.0-40.0) % [place] % (Auto) 6.2 (0.0-15.0) % Eos % (Auto) 1.7 (0.0-7.0) % Baso % (Auto) 0.7 (0.0-1.5) % Neut # (Auto) 7.2 H (1.4-5.7) K/uL Lymph # (Auto) 3.3 H (0.6-2.4) K/uL [place] # (Auto) 0.7 (0.0-0.8) K/uL Eos # (Auto) 0.2 (0.0-0.7) K/uL Baso # (Auto) 0.1 (0.0-0.1) K/uL Nucleated RBC % 0.0 /100WBC Nucleated RBCs # 0 K/uL Sodium (136-145) mmol/L Potassium (3.5-5.1) mmol/L Chloride (98-107) mmol/L Carbon Dioxide (21.0-32.0) mmol/L BUN (7.0-18.0) mg/dL Creatinine (0.6-1.0) mg/dL Est Cr Clr Drug Dosing mL/min Estimated GFR (MDRD) ml/min Glucose (74-106) mg/dL Hemoglobin A1c (4.5-6.2) % Calcium (8.5-10.1) mg/dL Total Bilirubin (0.2-1.0) mg/dL AST (15-37) IU/L ALT (14-63) IU/L Alkaline Phosphatase (46-116) U/L Total Protein (6.4-8.2) g/dL Albumin (3.4-5.0) g/dL Globulin (2.6-4.0) g/dL Albumin/Globulin Ratio (0.9-1.6) Andre Results Last 24 Hours: Microbiology 04/10/19 18:35 Aerobic Blood Culture - Preliminary Blood - Venous - Lab Draw NO GROWTH AFTER 1 DAY Anaerobic Blood Culture - Preliminary NO GROWTH AFTER 1 DAY 04/10/19 18:15 Aerobic Blood Culture - Preliminary Blood - Venous NO GROWTH AFTER 1 DAY Anaerobic Blood Culture - Preliminary NO GROWTH AFTER 1 DAY Med Orders - Current: Current Medications Acetaminophen (Tylenol) 650 mg PO Q6H PRN PRN Reason: Pain/Fever Albuterol/Ipratropium (Duoneb 3.0-0.5 Mg/3 Ml) 3 ml NEB Q4HRRT PRN PRN Reason: Wheezing Last Admin: 04/11/19 10:02 Dose: 3 ml Albuterol/Ipratropium (Duoneb 3.0-0.5 Mg/3 Ml) 3 ml NEB Q4HRRT [facility] Last Admin: 04/12/19 09:46 Dose: 3 ml Sodium Chloride (Normal Saline) 1,000 mls @ 75 mls/hr IV ASDIRECTED [facility] Last Admin: 04/11/19 23:50 Dose: 75 mls/hr Ceftriaxone Sodium/Dextrose 1 (gm/ Premix) 50 mls @ 100 mls/hr IV Q24H [facility] Last Admin: 04/11/19 18:24 Dose: 100 mls/hr Azithromycin 500 mg/ Sodium (Chloride) 250 mls @ 250 mls/hr IV DAILY@1930 [facility] Last Admin: 04/11/19 19:26 Dose: 250 mls/hr Oxycodone HCl (Oxycodone) 5 mg PO Q6H PRN PRN Reason: Pain Sodium Chloride (Saline Flush) 10 ml FLUSH ASDIRECTED PRN PRN Reason: Keep Vein Open Sodium Chloride (Saline Flush) 2.5 ml FLUSH ASDIRECTED PRN PRN Reason: Keep Vein Open Discontinued Medications Albuterol/Ipratropium (Duoneb 3.0-0.5 Mg/3 Ml) 3 ml NEB ONETIME ONE Stop: 04/10/19 18:12 Last Admin: 04/10/19 18:59 Dose: 3 ml Azithromycin (Zithromax) 500 mg PO NOW ONE Stop: 04/10/19 19:01 Last Admin: 04/10/19 19:10 Dose: 500 mg Ceftriaxone Sodium/Dextrose 1 (gm/ Premix) 50 mls @ 100 mls/hr IV ONETIME ONE Stop: 04/10/19 19:27 Last Admin: 04/10/19 19:10 Dose: 100 mls/hr Sodium Chloride (Normal Saline) 1,000 mls @ 125 mls/hr IV STAT ONE Stop: 04/11/19 03:05 Last Infusion: 04/11/19 00:30 Dose: 75 mls/hr Levofloxacin/Dextrose 500 mg/ (Premix) 100 mls @ 100 mls/hr IV Q24H [facility] Iopamidol (Isovue Multipack-370 (76%)) 80 ml IVPUSH ONETIME STA Stop: 04/10/19 19:49 Last Admin: 04/10/19 19:48 Dose: 80 ml Methylprednisolone Sodium Succinate (Solu-Medrol) 125 mg IVPUSH ONETIME ONE Stop: 04/10/19 18:12 Last Admin: 04/10/19 18:59 Dose: 125 mg - Exam General: Alert, Oriented HEENT: Pupils Equal, EOMI, Mucous Membr. Moist/[place] Lungs: Crackles, Rhonchi, Wheezing, Other (prolonged expiratory wheeze compared to inspiratory ) GI/Abdominal Exam: Normal Bowel Sounds, Soft, Non-Tender Back Exam: Full Range of Motion Extremities: Normal Inspection, Other (+1 pitting edema l/e ) Skin: Warm, Dry, Intact Neurological: No New Focal Deficit, Normal Gait Psy/Mental Status: Alert, Normal Affect, Normal Mood - Problem List & Annotations (1) Bronchopneumonia SNOMED Code(s): 579001089 Code(s): J18.0 - BRONCHOPNEUMONIA, UNSPECIFIED ORGANISM Status: Acute Current Visit: Yes (2) Hypoxemia SNOMED Code(s): 885248966 Code(s): R09.02 - HYPOXEMIA Status: Acute Current Visit: Yes - Problem List Review Problem List Initiated/Reviewed/Updated: Yes - My Orders Last 24 Hours: My Active Orders 04/11/19 19:00 cefTRIAXone [Rocephin in Dextrose,Iso-Osm 1 GM/50 ML] 1 gm Premix Bag 1 bag IV Q24H 04/11/19 19:30 Azithromycin [Zithromax] 500 mg Sodium Chloride 0.9% [Normal Saline (AdvBag)] 250 ml IV DAILY@1930 04/11/19 23:35 LEGIONELLA ANTIGEN [MREF] Routine 04/12/19 16:30 CBC WITH AUTO DIFF [HEME] DAILY COMPREHENSIVE METABOLIC PN,CMP [CHEM] DAILY 04/13/19 16:30 CBC WITH AUTO DIFF [HEME] DAILY COMPREHENSIVE METABOLIC PN,CMP [CHEM] DAILY - Plan Plan:: Assessment: 1. Acute hypoxic respiratory failure secondary to bronchopneumonia 2. Leukocytosis 3. PMH: Asthma, x 3 after age 47, obesity, former tobacco user Plan: Admit to observation. Full code, Intake output per routine. Vitals per routine. telemetry. GI prophylaxis: pantoprazole 40 daily. DVT prophylaxis: 40 lovenox daily. Diet: heart healthy. Activity : up ad cesar 1. Continue patient on Ceftriaxone and azithromycin. Continue duonebs q4hrs per RT. Supplemental O2. Continue to monitor today as pt. is still having productive cough, requiring supplemental o2 and still having some difficulty w/ movement of air. CXR: ground glass opacities w/ right middle lobe infiltrate 2. Concerns for etiology for repeat CAP; will consider immunoglobulin assay. Urine legionella ordered: awaiting results 3. PRN: tylenol, colace, restoril, guaifenesin <Rashid Singh - Last Filed: 04/12/19 10:51> - General Info Admission Dx/Problem (Free Text): I have seen and examined the patient independently of clinical specialist medical device, Dr. Oliver MD. I have reviewed and agree with the plan of care as outlined for this patient by him. I have discussed the case with him. Please see orders. - Patient Data Vitals - Most Recent: Last Vital Signs Temp 36.2 C 04/12/19 07:27 Pulse 77 04/12/19 07:27 Resp 20 04/12/19 07:27 BP 96/67 04/12/19 07:27 Pulse Ox 94 L 04/12/19 07:27 I&O - Last 24 Hours: Intake & Output 04/11/19 04/12/19 04/12/19 22:59 06:59 14:59 Intake Total 2124 6 Output Total 750 300 Balance 1374 1726 Lab Results Last 24 Hours: Laboratory Results - last 24 hr 04/11/19 04/11/19 04/11/19 Range/Units 06:03 16:43 16:43 WBC 19.26 H (4.0-11.0) K/uL RBC 4.52 (4.30-5.90) M/uL Hgb 13.1 (12.0-16.0) g/dL Hct 41.4 (36.0-46.0) % MCV 91.6 (80.0-98.0) fL MCH 29.0 (27.0-32.0) pg MCHC 31.6 (31.0-37.0) g/dL RDW Std Deviation 50.1 (28.0-62.0) fl RDW Coeff of Sammy 15 (11.0-15.0) % Plt Count 356 (150-400) K/uL MPV 9.90 (7.40-12.00) fL Neut % (Auto) 74.4 (48.0-80.0) % Lymph % (Auto) 17.9 (16.0-40.0) % [place] % (Auto) 7.4 (0.0-15.0) % Eos % (Auto) 0.1 (0.0-7.0) % Baso % (Auto) 0.2 (0.0-1.5) % Neut # (Auto) 14.4 H (1.4-5.7) K/uL Lymph # (Auto) 3.4 H (0.6-2.4) K/uL [place]ee # (Auto) 1.4 H (0.0-0.8) K/uL Eos # (Auto) 0.0 (0.0-0.7) K/uL Baso # (Auto) 0.0 (0.0-0.1) K/uL Nucleated RBC % 0.0 /100WBC Nucleated RBCs # 0 K/uL Sodium 143 (136-145) mmol/L Potassium 4.0 (3.5-5.1) mmol/L Chloride 106 (98-107) mmol/L Carbon Dioxide 27.2 (21.0-32.0) mmol/L BUN 23 H (7.0-18.0) mg/dL Creatinine 0.9 (0.6-1.0) mg/dL Est Cr Clr Drug Dosing 63.86 mL/min Estimated GFR (MDRD) > 60.0 ml/min Glucose 124 H (74-106) mg/dL Hemoglobin A1c 5.7 (4.5-6.2) % Calcium 10.0 (8.5-10.1) mg/dL Total Bilirubin 0.1 L (0.2-1.0) mg/dL AST 15 (15-37) IU/L ALT 22 (14-63) IU/L Alkaline Phosphatase 98 (46-116) U/L Total Protein 6.9 (6.4-8.2) g/dL Albumin 2.7 L (3.4-5.0) g/dL Globulin 4.2 H (2.6-4.0) g/dL Albumin/Globulin Ratio 0.6 L (0.9-1.6) 04/12/19 Range/Units 09:00 WBC 11.45 H (4.0-11.0) K/uL RBC 4.12 L (4.30-5.90) M/uL Hgb 12.0 (12.0-16.0) g/dL Hct 38.1 (36.0-46.0) % MCV 92.5 (80.0-98.0) fL MCH 29.1 (27.0-32.0) pg MCHC 31.5 (31.0-37.0) g/dL RDW Std Deviation 50.8 (28.0-62.0) fl RDW Coeff of Sammy 15 (11.0-15.0) % Plt Count 337 (150-400) K/uL MPV 9.90 (7.40-12.00) fL Neut % (Auto) 62.5 (48.0-80.0) % Lymph % (Auto) 28.9 (16.0-40.0) % [place] % (Auto) 6.2 (0.0-15.0) % Eos % (Auto) 1.7 (0.0-7.0) % Baso % (Auto) 0.7 (0.0-1.5) % Neut # (Auto) 7.2 H (1.4-5.7) K/uL Lymph # (Auto) 3.3 H (0.6-2.4) K/uL [place] # (Auto) 0.7 (0.0-0.8) K/uL Eos # (Auto) 0.2 (0.0-0.7) K/uL Baso # (Auto) 0.1 (0.0-0.1) K/uL Nucleated RBC % 0.0 /100WBC Nucleated RBCs # 0 K/uL Sodium (136-145) mmol/L Potassium (3.5-5.1) mmol/L Chloride (98-107) mmol/L Carbon Dioxide (21.0-32.0) mmol/L BUN (7.0-18.0) mg/dL Creatinine (0.6-1.0) mg/dL Est Cr Clr Drug Dosing mL/min Estimated GFR (MDRD) ml/min Glucose (74-106) mg/dL Hemoglobin A1c (4.5-6.2) % Calcium (8.5-10.1) mg/dL Total Bilirubin (0.2-1.0) mg/dL AST (15-37) IU/L ALT (14-63) IU/L Alkaline Phosphatase (46-116) U/L Total Protein (6.4-8.2) g/dL Albumin (3.4-5.0) g/dL Globulin (2.6-4.0) g/dL Albumin/Globulin Ratio (0.9-1.6) Andre Results Last 24 Hours: Microbiology 04/10/19 18:35 Aerobic Blood Culture - Preliminary Blood - Venous - Lab Draw NO GROWTH AFTER 1 DAY Anaerobic Blood Culture - Preliminary NO GROWTH AFTER 1 DAY 04/10/19 18:15 Aerobic Blood Culture - Preliminary Blood - Venous NO GROWTH AFTER 1 DAY Anaerobic Blood Culture - Preliminary NO GROWTH AFTER 1 DAY Med Orders - Current: Current Medications Acetaminophen (Tylenol) 650 mg PO Q6H PRN PRN Reason: Pain/Fever Albuterol/Ipratropium (Duoneb 3.0-0.5 Mg/3 Ml) 3 ml NEB Q4HRRT PRN PRN Reason: Wheezing Last Admin: 04/11/19 10:02 Dose: 3 ml Albuterol/Ipratropium (Duoneb 3.0-0.5 Mg/3 Ml) 3 ml NEB Q4HRRT [facility] Last Admin: 04/12/19 09:46 Dose: 3 ml Sodium Chloride (Normal Saline) 1,000 mls @ 75 mls/hr IV ASDIRECTED [facility] Last Admin: 04/11/19 23:50 Dose: 75 mls/hr Ceftriaxone Sodium/Dextrose 1 (gm/ Premix) 50 mls @ 100 mls/hr IV Q24H [facility] Last Admin: 04/11/19 18:24 Dose: 100 mls/hr Azithromycin 500 mg/ Sodium (Chloride) 250 mls @ 250 mls/hr IV DAILY@1930 [facility] Last Admin: 04/11/19 19:26 Dose: 250 mls/hr Oxycodone HCl (Oxycodone) 5 mg PO Q6H PRN PRN Reason: Pain Sodium Chloride (Saline Flush) 10 ml FLUSH ASDIRECTED PRN PRN Reason: Keep Vein Open Sodium Chloride (Saline Flush) 2.5 ml FLUSH ASDIRECTED PRN PRN Reason: Keep Vein Open Discontinued Medications Albuterol/Ipratropium (Duoneb 3.0-0.5 Mg/3 Ml) 3 ml NEB ONETIME ONE Stop: 04/10/19 18:12 Last Admin: 04/10/19 18:59 Dose: 3 ml Azithromycin (Zithromax) 500 mg PO NOW ONE Stop: 04/10/19 19:01 Last Admin: 04/10/19 19:10 Dose: 500 mg Ceftriaxone Sodium/Dextrose 1 (gm/ Premix) 50 mls @ 100 mls/hr IV ONETIME ONE Stop: 04/10/19 19:27 Last Admin: 04/10/19 19:10 Dose: 100 mls/hr Sodium Chloride (Normal Saline) 1,000 mls @ 125 mls/hr IV STAT ONE Stop: 04/11/19 03:05 Last Infusion: 04/11/19 00:30 Dose: 75 mls/hr Levofloxacin/Dextrose 500 mg/ (Premix) 100 mls @ 100 mls/hr IV Q24H [facility] Iopamidol (Isovue Multipack-370 (76%)) 80 ml IVPUSH ONETIME STA Stop: 04/10/19 19:49 Last Admin: 04/10/19 19:48 Dose: 80 ml Methylprednisolone Sodium Succinate (Solu-Medrol) 125 mg IVPUSH ONETIME ONE Stop: 04/10/19 18:12 Last Admin: 04/10/19 18:59 Dose: 125 mg - My Orders Last 24 Hours: My Active Orders 04/11/19 10:09 RT Aerosol Therapy [RC] ASDIRECTED 04/11/19 14:00 Albuterol/Ipratropium [DuoNeb 3.0-0.5 MG/3 ML] 3 ml NEB Q4HRRT
[2019-04-12] MEDS: Sodium Chloride 0.9% 1,000 ML IV SCH (13:29)
[2019-04-12 17:11] LABS: POTASSIUM,K 4.5 mmol/L (3.5-5.1)
[2019-04-12] MEDS: cefTRIAXone 1 GM in Premix Bag 1 BAG IV SCH (18:04)
[2019-04-12] MEDS: Azithromycin 500 MG in Sodium Chloride 0.9% 250 ML IV SCH (18:41)
[2019-04-13] MEDS: Albuterol/Ipratropium 3.0-0.5 MG/3 ML Neb Soln NEB SCH ×3 (02:25→09:36)
[2019-04-13] MEDS: Sodium Chloride 0.9% 1,000 ML IV SCH (06:34)
[2019-04-13 06:42] LABS: BLOOD UREA NITROGEN,BUN 17 mg/dL (7.0-18.0); CHLORIDE,CL 106 mmol/L (98-107); GLUCOSE RANDOM 96 mg/dL (74-106); POTASSIUM,K 3.8 mmol/L (3.5-5.1); SODIUM,NA 143 mmol/L (136-145)
--- NOTE | 2019-04-13 10:42 | PCM.DCSUM1 ---
<Terri Boyd - Last Filed: 04/13/19 10:37> Discharge Summary - Hospital Course Free Text/Narrative:: Discharge summary Admission date: April 11 Discharged date: April 13, 2019 Admission diagnoses: Acute hypoxic respiratory failure secondary to bronchopneumonia Past medical history asthma, 3 , obesity, former tobacco use Discharge diagnoses: Right middle lobe community acquired pneumonia Past medical history of asthma, >45, obesity Procedures: None Consultations: None Hospital course: Patient is a 53-year-old female with a past medical history of asthma and recent , former tobacco abuse, presenting with 5-6 days of increasing cough, productive, shortness of breath and wheezing, and subjective fever and chills. States she gets pneumonia every 4-5 years of unknown etiology. On arrival chest x-ray showed right middle lobe pneumonia with a possible nodule, marginally elevated d-dimer with a negative CT angiogram. Patient was initiated on IV ceftriaxone and IV azithromycin, DuoNeb every 4 hours. Patient was placed on supplemental oxygen initially for our weaning down over subsequent stage II room air. Patient ultimately improved on day of discharge; states she felt better and would like to go home. Patient sent home with Levaquin 750 daily for additional 5 days. Advised to follow up PCP 1 week. Patient also advised to do a repeat chest x-ray in 6-8 weeks. Patient understood Discharge condition: Stable Disposition: Home Discharge medications: Levaquin 750 daily 5 Pro Air when necessary wheezing Atrovent every 6 Tylenol 325 every 6 when necessary fever Resume home medications. Follow-up: Patient was follow up with PCP in one week; repeat chest x-ray in 6- 8 weeks. - Discharge Data Discharge Date: 04/13/19 Discharge Disposition: Home, Self-Care 01 Condition: Fair - Referral to Home Health Primary Care Physician: PCP None - Discharge Diagnosis/Problem(s) (1) Bronchopneumonia SNOMED Code(s): 694958789 ICD Code: J18.0 - BRONCHOPNEUMONIA, UNSPECIFIED ORGANISM Status: Acute Current Visit: Yes (2) Hypoxemia SNOMED Code(s): 475942548 ICD Code: R09.02 - HYPOXEMIA Status: Acute Current Visit: Yes - Patient Instructions Diet: Heart Healthy Diet Activity: Cough & Deep Breathe Driving: May Drive Today Showering/Bathing: May Shower Notify Provider of: Fever, Increased Pain, Swelling and Redness, Nausea and/or Vomiting Other/Special Instructions: Advised to notify provider if symptoms of fever, chills, bodyaches, increasing shortness of breath develop. Proceed to emergency department if symptoms of chest pain, shortness of breath, headache or dizziness develop. Follow up with PCP in 7-10 days. Get a repeat chest x- ray in 6-8 weeks to check for pneumonia resolution. - Discharge Plan *PRESCRIPTION DRUG MONITORING PROGRAM REVIEWED*: No *COPY OF PRESCRIPTION DRUG MONITORING REPORT IN PATIENT KEVIN: No Prescriptions/Med Rec: Albuterol [Proventil Neb Soln] 0.63 mg NEB Q6H PRN #10 neb PRN Reason: Wheezing Ipratropium [Atrovent HFA] 1 puff INH Q6H 10 Days #1 inhaler Levofloxacin [Levaquin] 750 mg PO DAILY 5 Days #5 tablet Home Medications: Home Meds Albuterol Sulfate [Proair Hfa] 2 puff INH Q6HR PRN 04/10/19 [History] Ascorbic Acid [Vitamin C] 1,000 mg PO DAILY 04/10/19 [History] Biotin 5,000 mcg PO DAILY 04/10/19 [History] Cholecalciferol (Vitamin D3) [Vitamin D] 5,000 units PO DAILY 04/10/19 [History] Ibuprofen 800 mg PO Q6HR PRN 04/10/19 [History] Acetaminophen [Tylenol] 650 mg PO Q6H PRN tablet 04/13/19 [Rx] Albuterol [Proventil Neb Soln] 0.63 mg NEB Q6H PRN #10 neb 04/13/19 [Rx] Ipratropium [Atrovent HFA] 1 puff INH Q6H 10 Days #1 inhaler 04/13/19 [Rx] Levofloxacin [Levaquin] 750 mg PO DAILY 5 Days #5 tablet 04/13/19 [Rx] Patient Handouts: Ipratropium aerosol inhaler, Hypoxemia, Levofloxacin tablets , Albuterol inhalation solution, Community-Acquired Pneumonia, Adult, Easy-to- Read Referrals: Maykel Stewart MD [Resident] - 04/17/19 2:00 pm - Discharge Summary/Plan Comment DC Time >30 min.: No - Patient Data Vitals - Most Recent: Last Vital Signs Temp 97.6 F 04/13/19 07:36 Pulse 69 04/13/19 07:36 Resp 18 04/13/19 07:36 BP 129/76 04/13/19 07:36 Pulse Ox 95 04/13/19 07:36 Weight - Most Recent: 78.789 kg I&O - Last 24 hours: Intake & Output 04/12/19 04/13/19 04/13/19 22:59 06:59 14:59 Intake Total 2200 2700 Output Total 1200 3500 Balance 1000 -800 Lab Results - Last 24 hrs: Laboratory Results - last 24 hr 04/12/19 04/12/19 04/13/19 Range/Units 16:37 16:37 06:15 WBC 13.05 H 10.08 (4.0-11.0) K/uL RBC 4.30 4.19 L (4.30-5.90) M/uL Hgb 12.4 11.9 L (12.0-16.0) g/dL Hct 39.9 38.2 (36.0-46.0) % MCV 92.8 91.2 (80.0-98.0) fL MCH 28.8 28.4 (27.0-32.0) pg MCHC 31.1 31.2 (31.0-37.0) g/dL RDW Std Deviation 50.8 48.5 (28.0-62.0) fl RDW Coeff of Sammy 15 15 (11.0-15.0) % Plt Count 325 330 (150-400) K/uL MPV 9.70 9.60 (7.40-12.00) fL Neut % (Auto) 63.2 51.5 (48.0-80.0) % Lymph % (Auto) 26.7 35.3 (16.0-40.0) % Weston % (Auto) 6.8 6.8 (0.0-15.0) % Eos % (Auto) 2.8 5.6 (0.0-7.0) % Baso % (Auto) 0.5 0.8 (0.0-1.5) % Neut # (Auto) 8.2 H 5.2 (1.4-5.7) K/uL Lymph # (Auto) 3.5 H 3.6 H (0.6-2.4) K/uL Weston # (Auto) 0.9 H 0.7 (0.0-0.8) K/uL Eos # (Auto) 0.4 0.6 (0.0-0.7) K/uL Baso # (Auto) 0.1 0.1 (0.0-0.1) K/uL Nucleated RBC % 0.0 0.0 /100WBC Nucleated RBCs # 0 0 K/uL Sodium 144 (136-145) mmol/L Potassium 4.5 (3.5-5.1) mmol/L Chloride 108 H (98-107) mmol/L Carbon Dioxide 29.0 (21.0-32.0) mmol/L BUN 21 H (7.0-18.0) mg/dL Creatinine 1.0 (0.6-1.0) mg/dL Est Cr Clr Drug Dosing 57.47 mL/min Estimated GFR (MDRD) 58.5 ml/min Glucose 108 H (74-106) mg/dL Calcium 9.6 (8.5-10.1) mg/dL Total Bilirubin 0.1 L (0.2-1.0) mg/dL AST 16 (15-37) IU/L ALT 23 (14-63) IU/L Alkaline Phosphatase 84 (46-116) U/L Total Protein 6.3 L (6.4-8.2) g/dL Albumin 2.6 L (3.4-5.0) g/dL Globulin 3.7 (2.6-4.0) g/dL Albumin/Globulin Ratio 0.7 L (0.9-1.6) 04/13/19 Range/Units 06:15 WBC (4.0-11.0) K/uL RBC (4.30-5.90) M/uL Hgb (12.0-16.0) g/dL Hct (36.0-46.0) % MCV (80.0-98.0) fL MCH (27.0-32.0) pg MCHC (31.0-37.0) g/dL RDW Std Deviation (28.0-62.0) fl RDW Coeff of Sammy (11.0-15.0) % Plt Count (150-400) K/uL MPV (7.40-12.00) fL Neut % (Auto) (48.0-80.0) % Lymph % (Auto) (16.0-40.0) % Weston % (Auto) (0.0-15.0) % Eos % (Auto) (0.0-7.0) % Baso % (Auto) (0.0-1.5) % Neut # (Auto) (1.4-5.7) K/uL Lymph # (Auto) (0.6-2.4) K/uL Weston # (Auto) (0.0-0.8) K/uL Eos # (Auto) (0.0-0.7) K/uL Baso # (Auto) (0.0-0.1) K/uL Nucleated RBC % /100WBC Nucleated RBCs # K/uL Sodium 143 (136-145) mmol/L Potassium 3.8 (3.5-5.1) mmol/L Chloride 106 (98-107) mmol/L Carbon Dioxide 29.0 (21.0-32.0) mmol/L BUN 17 (7.0-18.0) mg/dL Creatinine 0.9 (0.6-1.0) mg/dL Est Cr Clr Drug Dosing 63.86 mL/min Estimated GFR (MDRD) > 60.0 ml/min Glucose 96 (74-106) mg/dL Calcium 9.2 (8.5-10.1) mg/dL Total Bilirubin 0.1 L (0.2-1.0) mg/dL AST 16 (15-37) IU/L ALT 18 (14-63) IU/L Alkaline Phosphatase 77 (46-116) U/L Total Protein 5.9 L (6.4-8.2) g/dL Albumin 2.6 L (3.4-5.0) g/dL Globulin 3.3 (2.6-4.0) g/dL Albumin/Globulin Ratio 0.8 L (0.9-1.6) JESSIE Results - Last 24 hrs: Microbiology 04/11/19 23:35 Legionella Urinary Antigen - Final Urine 04/10/19 18:35 Aerobic Blood Culture - Preliminary Blood - Venous - Lab Draw NO GROWTH AFTER 2 DAYS Anaerobic Blood Culture - Preliminary NO GROWTH AFTER 2 DAYS 04/10/19 18:15 Aerobic Blood Culture - Preliminary Blood - Venous NO GROWTH AFTER 2 DAYS Anaerobic Blood Culture - Preliminary NO GROWTH AFTER 2 DAYS Med Orders - Current: Current Medications Acetaminophen (Tylenol) 650 mg PO Q6H PRN PRN Reason: Pain/Fever Albuterol/Ipratropium (Duoneb 3.0-0.5 Mg/3 Ml) 3 ml NEB Q4HRRT PRN PRN Reason: Wheezing Last Admin: 04/11/19 10:02 Dose: 3 ml Albuterol/Ipratropium (Duoneb 3.0-0.5 Mg/3 Ml) 3 ml NEB Q4HRRT [facility] Last Admin: 04/13/19 09:36 Dose: 3 ml Sodium Chloride (Normal Saline) 1,000 mls @ 75 mls/hr IV ASDIRECTED [facility] Last Admin: 04/13/19 06:34 Dose: 75 mls/hr Ceftriaxone Sodium/Dextrose 1 (gm/ Premix) 50 mls @ 100 mls/hr IV Q24H [facility] Last Admin: 04/12/19 18:04 Dose: 100 mls/hr Azithromycin 500 mg/ Sodium (Chloride) 250 mls @ 250 mls/hr IV DAILY@1930 [facility] Last Admin: 04/12/19 18:41 Dose: 250 mls/hr Oxycodone HCl (Oxycodone) 5 mg PO Q6H PRN PRN Reason: Pain Sodium Chloride (Saline Flush) 10 ml FLUSH ASDIRECTED PRN PRN Reason: Keep Vein Open Sodium Chloride (Saline Flush) 2.5 ml FLUSH ASDIRECTED PRN PRN Reason: Keep Vein Open Discontinued Medications Albuterol/Ipratropium (Duoneb 3.0-0.5 Mg/3 Ml) 3 ml NEB ONETIME ONE Stop: 04/10/19 18:12 Last Admin: 04/10/19 18:59 Dose: 3 ml Azithromycin (Zithromax) 500 mg PO NOW ONE Stop: 04/10/19 19:01 Last Admin: 04/10/19 19:10 Dose: 500 mg Ceftriaxone Sodium/Dextrose 1 (gm/ Premix) 50 mls @ 100 mls/hr IV ONETIME ONE Stop: 04/10/19 19:27 Last Admin: 04/10/19 19:10 Dose: 100 mls/hr Sodium Chloride (Normal Saline) 1,000 mls @ 125 mls/hr IV STAT ONE Stop: 04/11/19 03:05 Last Infusion: 04/11/19 00:30 Dose: 75 mls/hr Levofloxacin/Dextrose 500 mg/ (Premix) 100 mls @ 100 mls/hr IV Q24H [facility] Iopamidol (Isovue Multipack-370 (76%)) 80 ml IVPUSH ONETIME STA Stop: 04/10/19 19:49 Last Admin: 04/10/19 19:48 Dose: 80 ml Methylprednisolone Sodium Succinate (Solu-Medrol) 125 mg IVPUSH ONETIME ONE Stop: 04/10/19 18:12 Last Admin: 04/10/19 18:59 Dose: 125 mg <SamanthaRashid - Last Filed: 04/13/19 12:21> Discharge Summary - Hospital Course Free Text/Narrative:: I have seen and examined the patient independently of medical record coder, Dr. Oliver MD. I have reviewed and agree with the plan of care as outlined for this patient by him. I have discussed the case with him. Please see orders. - Referral to Home Health Primary Care Physician: PCP None - Patient Data Vitals - Most Recent: Last Vital Signs Temp 36.4 C 04/13/19 07:36 Pulse 69 04/13/19 07:36 Resp 18 04/13/19 07:36 BP 129/76 04/13/19 07:36 Pulse Ox 95 04/13/19 07:36 I&O - Last 24 hours: Intake & Output 04/12/19 04/13/19 04/13/19 22:59 06:59 14:59 Intake Total 2200 2700 1100 Output Total 1200 3500 1500 Balance 1000 -800 -400 Lab Results - Last 24 hrs: Laboratory Results - last 24 hr 04/12/19 04/12/19 04/13/19 Range/Units 16:37 16:37 06:15 WBC 13.05 H 10.08 (4.0-11.0) K/uL RBC 4.30 4.19 L (4.30-5.90) M/uL Hgb 12.4 11.9 L (12.0-16.0) g/dL Hct 39.9 38.2 (36.0-46.0) % MCV 92.8 91.2 (80.0-98.0) fL MCH 28.8 28.4 (27.0-32.0) pg MCHC 31.1 31.2 (31.0-37.0) g/dL RDW Std Deviation 50.8 48.5 (28.0-62.0) fl RDW Coeff of Sammy 15 15 (11.0-15.0) % Plt Count 325 330 (150-400) K/uL MPV 9.70 9.60 (7.40-12.00) fL Neut % (Auto) 63.2 51.5 (48.0-80.0) % Lymph % (Auto) 26.7 35.3 (16.0-40.0) % Weston % (Auto) 6.8 6.8 (0.0-15.0) % Eos % (Auto) 2.8 5.6 (0.0-7.0) % Baso % (Auto) 0.5 0.8 (0.0-1.5) % Neut # (Auto) 8.2 H 5.2 (1.4-5.7) K/uL Lymph # (Auto) 3.5 H 3.6 H (0.6-2.4) K/uL Weston # (Auto) 0.9 H 0.7 (0.0-0.8) K/uL Eos # (Auto) 0.4 0.6 (0.0-0.7) K/uL Baso # (Auto) 0.1 0.1 (0.0-0.1) K/uL Nucleated RBC % 0.0 0.0 /100WBC Nucleated RBCs # 0 0 K/uL Sodium 144 (136-145) mmol/L Potassium 4.5 (3.5-5.1) mmol/L Chloride 108 H (98-107) mmol/L Carbon Dioxide 29.0 (21.0-32.0) mmol/L BUN 21 H (7.0-18.0) mg/dL Creatinine 1.0 (0.6-1.0) mg/dL Est Cr Clr Drug Dosing 57.47 mL/min Estimated GFR (MDRD) 58.5 ml/min Glucose 108 H (74-106) mg/dL Calcium 9.6 (8.5-10.1) mg/dL Total Bilirubin 0.1 L (0.2-1.0) mg/dL AST 16 (15-37) IU/L ALT 23 (14-63) IU/L Alkaline Phosphatase 84 (46-116) U/L Total Protein 6.3 L (6.4-8.2) g/dL Albumin 2.6 L (3.4-5.0) g/dL Globulin 3.7 (2.6-4.0) g/dL Albumin/Globulin Ratio 0.7 L (0.9-1.6) 04/13/19 Range/Units 06:15 WBC (4.0-11.0) K/uL RBC (4.30-5.90) M/uL Hgb (12.0-16.0) g/dL Hct (36.0-46.0) % MCV (80.0-98.0) fL MCH (27.0-32.0) pg MCHC (31.0-37.0) g/dL RDW Std Deviation (28.0-62.0) fl RDW Coeff of Sammy (11.0-15.0) % Plt Count (150-400) K/uL MPV (7.40-12.00) fL Neut % (Auto) (48.0-80.0) % Lymph % (Auto) (16.0-40.0) % Weston % (Auto) (0.0-15.0) % Eos % (Auto) (0.0-7.0) % Baso % (Auto) (0.0-1.5) % Neut # (Auto) (1.4-5.7) K/uL Lymph # (Auto) (0.6-2.4) K/uL Weston # (Auto) (0.0-0.8) K/uL Eos # (Auto) (0.0-0.7) K/uL Baso # (Auto) (0.0-0.1) K/uL Nucleated RBC % /100WBC Nucleated RBCs # K/uL Sodium 143 (136-145) mmol/L Potassium 3.8 (3.5-5.1) mmol/L Chloride 106 (98-107) mmol/L Carbon Dioxide 29.0 (21.0-32.0) mmol/L BUN 17 (7.0-18.0) mg/dL Creatinine 0.9 (0.6-1.0) mg/dL Est Cr Clr Drug Dosing 63.86 mL/min Estimated GFR (MDRD) > 60.0 ml/min Glucose 96 (74-106) mg/dL Calcium 9.2 (8.5-10.1) mg/dL Total Bilirubin 0.1 L (0.2-1.0) mg/dL AST 16 (15-37) IU/L ALT 18 (14-63) IU/L Alkaline Phosphatase 77 (46-116) U/L Total Protein 5.9 L (6.4-8.2) g/dL Albumin 2.6 L (3.4-5.0) g/dL Globulin 3.3 (2.6-4.0) g/dL Albumin/Globulin Ratio 0.8 L (0.9-1.6) JESSIE Results - Last 24 hrs: Microbiology 04/11/19 23:35 Legionella Urinary Antigen - Final Urine 04/10/19 18:35 Aerobic Blood Culture - Preliminary Blood - Venous - Lab Draw NO GROWTH AFTER 2 DAYS Anaerobic Blood Culture - Preliminary NO GROWTH AFTER 2 DAYS 04/10/19 18:15 Aerobic Blood Culture - Preliminary Blood - Venous NO GROWTH AFTER 2 DAYS Anaerobic Blood Culture - Preliminary NO GROWTH AFTER 2 DAYS Med Orders - Current: Current Medications Acetaminophen (Tylenol) 650 mg PO Q6H PRN PRN Reason: Pain/Fever Albuterol/Ipratropium (Duoneb 3.0-0.5 Mg/3 Ml) 3 ml NEB Q4HRRT PRN PRN Reason: Wheezing Last Admin: 04/11/19 10:02 Dose: 3 ml Albuterol/Ipratropium (Duoneb 3.0-0.5 Mg/3 Ml) 3 ml NEB Q4HRRT [facility] Last Admin: 04/13/19 09:36 Dose: 3 ml Sodium Chloride (Normal Saline) 1,000 mls @ 75 mls/hr IV ASDIRECTED [facility] Last Admin: 04/13/19 06:34 Dose: 75 mls/hr Ceftriaxone Sodium/Dextrose 1 (gm/ Premix) 50 mls @ 100 mls/hr IV Q24H [facility] Last Admin: 04/12/19 18:04 Dose: 100 mls/hr Azithromycin 500 mg/ Sodium (Chloride) 250 mls @ 250 mls/hr IV DAILY@1930 [facility] Last Admin: 04/12/19 18:41 Dose: 250 mls/hr Oxycodone HCl (Oxycodone) 5 mg PO Q6H PRN PRN Reason: Pain Sodium Chloride (Saline Flush) 10 ml FLUSH ASDIRECTED PRN PRN Reason: Keep Vein Open Sodium Chloride (Saline Flush) 2.5 ml FLUSH ASDIRECTED PRN PRN Reason: Keep Vein Open Discontinued Medications Albuterol/Ipratropium (Duoneb 3.0-0.5 Mg/3 Ml) 3 ml NEB ONETIME ONE Stop: 04/10/19 18:12 Last Admin: 04/10/19 18:59 Dose: 3 ml Azithromycin (Zithromax) 500 mg PO NOW ONE Stop: 04/10/19 19:01 Last Admin: 04/10/19 19:10 Dose: 500 mg Ceftriaxone Sodium/Dextrose 1 (gm/ Premix) 50 mls @ 100 mls/hr IV ONETIME ONE Stop: 04/10/19 19:27 Last Admin: 04/10/19 19:10 Dose: 100 mls/hr Sodium Chloride (Normal Saline) 1,000 mls @ 125 mls/hr IV STAT ONE Stop: 04/11/19 03:05 Last Infusion: 04/11/19 00:30 Dose: 75 mls/hr Levofloxacin/Dextrose 500 mg/ (Premix) 100 mls @ 100 mls/hr IV Q24H [facility] Iopamidol (Isovue Multipack-370 (76%)) 80 ml IVPUSH ONETIME STA Stop: 04/10/19 19:49 Last Admin: 04/10/19 19:48 Dose: 80 ml Methylprednisolone Sodium Succinate (Solu-Medrol) 125 mg IVPUSH ONETIME ONE Stop: 04/10/19 18:12 Last Admin: 04/10/19 18:59 Dose: 125 mg
== END 2019-04-13 10:08 | disposition home or self-care (01) ==
LOC: MW.ED 18:03 → MW.MS 19:04
PROVIDERS: ADMIT Internal Medicine; ATTEND Internal Medicine
DX: J18.1 Lobar pneumonia, unspecified organism (principal); J45.909 Unspecified asthma, uncomplicated; D72.829 Elevated white blood cell count, unspecified; R73.9 Hyperglycemia, unspecified; E66.9 Obesity, unspecified; Z68.29 Body mass index [BMI] 29.0-29.9, adult; Z87.891 Personal history of nicotine dependence; Z79.899 Other long term (current) drug therapy; Z88.0 Allergy status to penicillin
CPT/HCPCS: 36415; 71045; 71275; 80053; 83036; 83605; 84484; 85025; 85379; 87040; 93005; 94640; 96361; 96365; 96375; 99285; A9270; J0456; J0696; J2930; J7040; J7050; Q9967; 96366; 96376; 99283; G0378; J7620-GY

== ENCOUNTER 2019-04-25 23:51 | Observation (INO) | payer BC ==
[2019-04-26] MEDS ORDERED: Albuterol/Ipratropium 3.0-0.5 MG/3 ML Neb Soln NEB ONE (00:09)
[2019-04-26] MEDS ORDERED: methylPREDNISolone Sodium Succinate 125 MG/2 ML SDV IVPUSH ONE (00:12)
--- NOTE | 2019-04-26 00:12 | EDM.PDOC ---
ED HPI GENERAL MEDICAL PROBLEM - General Chief Complaint: Respiratory Problem Stated Complaint: COUGH Time Seen by Provider: 04/26/19 00:03 - History of Present Illness INITIAL COMMENTS - FREE TEXT/NARRATIVE: HISTORY AND PHYSICAL: History of present illness: Patient 53-year-old female who was hospitalized on April 10 for dyspnea and diagnosed with pneumonia she had a short hospital stay and was discharged on Levaquin and finished her antibiotics and now returns with recurrence of symptoms in the form of shortness of breath and cough she denies fever no vomiting or diarrhea Review of systems: As per history of present illness and below otherwise all systems reviewed and negative. Past medical history: As per history of present illness and as reviewed below otherwise noncontributory. Surgical history: As per history of present illness and as reviewed below otherwise noncontributory. Social history: No reported history of drug or alcohol abuse. Family history: As per history of present illness and as reviewed below otherwise noncontributory. Physical exam: HEENT: Atraumatic, normocephalic, pupils reactive, negative for conjunctival pallor or scleral icterus, mucous membranes moist, throat clear, neck supple, nontender, trachea midline. Lungs: Diminished, breath sounds equal bilaterally, chest nontender. Heart: S1S2, regular, negative for clicks, rubs, or JVD. Abdomen: Soft, nondistended, nontender. Negative for masses or hepatosplenomegaly. Negative for costovertebral tenderness. Pelvis: Stable nontender. Genitourinary: Deferred. Rectal: Deferred. Extremities: Atraumatic, negative for cords or calf pain. Neurovascular unremarkable. Neuro: Awake, alert, oriented. Cranial nerves II through XII unremarkable. Cerebellum unremarkable. Motor and sensory unremarkable throughout. Exam nonfocal. Diagnostics: CBC CMP troponin PT/INR BMP EKG CTA chest blood culture 2 lactic acid ABG Therapeutics: IV O2 monitor Albuterol ipratropium nebulizer saline at 125 mL an hour Solu- Medrol 125 mg IV Impression: #1 dyspnea with hypoxemia #2 history of pneumonia Definitive disposition and diagnosis as appropriate pending reevaluation and review of above. Upper Chest Pain Score (Numeric/FACES): 6 - Related Data Allergies Allergy/AdvReac Type Severity Reaction Status Date / Time Penicillins Allergy Rash Verified 04/26/19 00:40 Home Meds: Home Meds Albuterol Sulfate [Proair Hfa] 2 puff INH Q6HR PRN 04/10/19 [History] Ascorbic Acid [Vitamin C] 1,000 mg PO DAILY 04/10/19 [History] Biotin 5,000 mcg PO DAILY 04/10/19 [History] Cholecalciferol (Vitamin D3) [Vitamin D] 5,000 units PO DAILY 04/10/19 [History] Ibuprofen 800 mg PO Q6HR PRN 04/10/19 [History] Acetaminophen [Tylenol] 650 mg PO Q6H PRN tablet 04/13/19 [Rx] Albuterol [Proventil Neb Soln] 0.63 mg NEB Q6H PRN #10 neb 04/13/19 [Rx] Ipratropium [Atrovent HFA] 1 puff INH Q6H 10 Days #1 inhaler 04/13/19 [Rx] Past Medical History HEENT History: Reports: Impaired Vision Cardiovascular History: Reports: Heart Murmur Respiratory History: Reports: Pneumonia, Recurrent [employer] History: Reports: Ectopic , Spontaneous Endocrine/Metabolic History: Reports: Diabetes, Gestational - Infectious Disease History Infectious Disease History: 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 ED EXAM, GENERAL - Physical Exam Exam: See Below (Dictation) Course - Vital Signs Last Recorded V/S: Last Vital Signs Temp 36.2 C 04/26/19 00:01 Pulse 89 04/26/19 02:14 Resp 22 H 04/26/19 02:14 BP 133/94 H 04/26/19 02:14 Pulse Ox 94 L 04/26/19 02:45 - Orders/Labs/Meds Orders: Active Orders 24 hr Category Date Time Status EKG Documentation Completion [RC] STAT Care 04/26/19 00:07 Active Oxygen Therapy Adult [Oxygen Therapy, ED] [RC] Care 04/26/19 02:16 Active ASDIRECTED RT Aerosol Therapy [RC] ASDIRECTED Care 04/26/19 00:09 Active CULTURE BLOOD [BC] Stat Lab 04/26/19 00:58 Received CULTURE BLOOD [BC] Stat Lab 04/26/19 00:58 Received Sodium Chloride 0.9% [Normal Saline] 1,000 ml Med 04/26/19 00:15 Active IV STAT Blood Culture x2 Reflex Set [OM.PC] Stat Oth 04/26/19 00:08 Ordered Medication Orders Sodium Chloride (Normal Saline) 1,000 mls @ 125 mls/hr IV STAT ANASTASIA Last Infusion: 04/26/19 01:34 Dose: 999 mls/hr Admin: 04/26/19 00:24 Dose: 125 mls/hr Labs: Laboratory Tests 04/26/19 04/26/19 04/26/19 Range/Units 00:23 00:23 00:23 WBC 13.59 H (4.0-11.0) K/uL RBC 4.69 (4.30-5.90) M/uL Hgb 13.6 (12.0-16.0) g/dL Hct 42.6 (36.0-46.0) % MCV 90.8 (80.0-98.0) fL MCH 29.0 (27.0-32.0) pg MCHC 31.9 (31.0-37.0) g/dL RDW Std Deviation 46.1 (28.0-62.0) fl RDW Coeff of Sammy 14 (11.0-15.0) % Plt Count 392 (150-400) K/uL MPV 9.60 (7.40-12.00) fL Neut % (Auto) 55.8 (48.0-80.0) % Lymph % (Auto) 30.0 (16.0-40.0) % Aurora % (Auto) 6.8 (0.0-15.0) % Eos % (Auto) 6.6 (0.0-7.0) % Baso % (Auto) 0.8 (0.0-1.5) % Neut # (Auto) 7.6 H (1.4-5.7) K/uL Lymph # (Auto) 4.1 H (0.6-2.4) K/uL Aurora # (Auto) 0.9 H (0.0-0.8) K/uL Eos # (Auto) 0.9 H (0.0-0.7) K/uL Baso # (Auto) 0.1 (0.0-0.1) K/uL INR ABG pH (7.35-7.45) ABG pCO2 (35-45) mmHG ABG pO2 (75-100) mmHG ABG HCO3 (22-26) mEq/L ABG Total CO2 ABG Base Excess (-2.0-2.0) Lactate (0.20-2.00) mmol/L Sodium 142 (136-145) mmol/L Potassium 4.3 (3.5-5.1) mmol/L Chloride 105 (98-107) mmol/L Carbon Dioxide 27.8 (21.0-32.0) mmol/L BUN 23 H (7.0-18.0) mg/dL Creatinine 1.2 H (0.6-1.0) mg/dL Est Cr Clr Drug Dosing 47.89 mL/min Estimated GFR (MDRD) 47.4 ml/min Glucose 112 H (74-106) mg/dL Calcium 8.5 (8.5-10.1) mg/dL Total Bilirubin 0.2 (0.2-1.0) mg/dL AST 19 (15-37) IU/L ALT 22 (14-63) IU/L Alkaline Phosphatase 83 (46-116) U/L Troponin I < 0.050 (0.000-0.056) ng/mL B-Natriuretic Peptide 4 (<100) PG/ML Total Protein 6.8 (6.4-8.2) g/dL Albumin 3.2 L (3.4-5.0) g/dL Globulin 3.6 (2.6-4.0) g/dL Albumin/Globulin Ratio 0.9 (0.9-1.6) 04/26/19 04/26/19 04/26/19 Range/Units 00:23 00:23 01:15 WBC (4.0-11.0) K/uL RBC (4.30-5.90) M/uL Hgb (12.0-16.0) g/dL Hct (36.0-46.0) % MCV (80.0-98.0) fL MCH (27.0-32.0) pg MCHC (31.0-37.0) g/dL RDW Std Deviation (28.0-62.0) fl RDW Coeff of Sammy (11.0-15.0) % Plt Count (150-400) K/uL MPV (7.40-12.00) fL Neut % (Auto) (48.0-80.0) % Lymph % (Auto) (16.0-40.0) % Aurora % (Auto) (0.0-15.0) % Eos % (Auto) (0.0-7.0) % Baso % (Auto) (0.0-1.5) % Neut # (Auto) (1.4-5.7) K/uL Lymph # (Auto) (0.6-2.4) K/uL Aurora # (Auto) (0.0-0.8) K/uL Eos # (Auto) (0.0-0.7) K/uL Baso # (Auto) (0.0-0.1) K/uL INR 0.96 ABG pH 7.400 (7.35-7.45) ABG pCO2 43 (35-45) mmHG ABG pO2 56 L (75-100) mmHG ABG HCO3 27 H (22-26) mEq/L ABG Total CO2 24.1 ABG Base Excess 1.6 (-2.0-2.0) Lactate 0.8 (0.20-2.00) mmol/L Sodium (136-145) mmol/L Potassium (3.5-5.1) mmol/L Chloride (98-107) mmol/L Carbon Dioxide (21.0-32.0) mmol/L BUN (7.0-18.0) mg/dL Creatinine (0.6-1.0) mg/dL Est Cr Clr Drug Dosing mL/min Estimated GFR (MDRD) ml/min Glucose (74-106) mg/dL Calcium (8.5-10.1) mg/dL Total Bilirubin (0.2-1.0) mg/dL AST (15-37) IU/L ALT (14-63) IU/L Alkaline Phosphatase (46-116) U/L Troponin I (0.000-0.056) ng/mL B-Natriuretic Peptide (<100) PG/ML Total Protein (6.4-8.2) g/dL Albumin (3.4-5.0) g/dL Globulin (2.6-4.0) g/dL Albumin/Globulin Ratio (0.9-1.6) Meds: Medications Generic Name Dose Route Start Last Admin Trade Name Elicia PRN Reason Stop Dose Admin Sodium Chloride 1,000 mls @ 125 mls/hr 04/26/19 00:15 04/26/19 01:34 Normal Saline IV 999 mls/hr STAT ANASTASIA Infusion Discontinued Medications Generic Name Dose Route Start Last Admin Trade Name Wiltonq PRN Reason Stop Dose Admin Albuterol/Ipratropium 3 ml 04/26/19 00:09 04/26/19 00:14 Duoneb 3.0-0.5 Mg/3 Ml NEB 04/26/19 00:10 3 ml ONETIME ONE Administration Iopamidol 80 ml 04/26/19 02:08 04/26/19 02:08 Isovue Multipack-370 (76%) IVPUSH 04/26/19 02:09 80 ml ONETIME ONE Administration Methylprednisolone Sodium Succinate 125 mg 04/26/19 00:12 04/26/19 00:24 Solu-Medrol IVPUSH 04/26/19 00:13 125 mg ONETIME ONE Administration Ondansetron HCl 4 mg 04/26/19 01:34 04/26/19 01:44 Zofran IVPUSH 04/26/19 01:35 4 mg ONETIME ONE Administration Departure - Departure Time of Disposition: 03:49 Disposition: Refer to Observation Condition: Good Clinical Impression: COPD (chronic obstructive pulmonary disease), Hypoxemia, History of pneumonia - Discharge Information Referrals: PCP,Unknown [Primary Care Provider] - Forms: ED Department Discharge - My Orders Last 24 Hours: My Active Orders 04/26/19 00:07 EKG Documentation Completion [RC] STAT 04/26/19 00:08 Blood Culture x2 Reflex Set [OM.PC] Stat 04/26/19 00:09 RT Aerosol Therapy [RC] ASDIRECTED 04/26/19 00:15 Sodium Chloride 0.9% [Normal Saline] 1,000 ml IV STAT 04/26/19 00:58 CULTURE BLOOD [BC] Stat CULTURE BLOOD [BC] Stat 04/26/19 02:16 Oxygen Therapy Adult [Oxygen Therapy, ED] [RC] ASDIRECTED - Assessment/Plan Last 24 Hours: My Active Orders 04/26/19 00:07 EKG Documentation Completion [RC] STAT 04/26/19 00:08 Blood Culture x2 Reflex Set [OM.PC] Stat 04/26/19 00:09 RT Aerosol Therapy [RC] ASDIRECTED 04/26/19 00:15 Sodium Chloride 0.9% [Normal Saline] 1,000 ml IV STAT 04/26/19 00:58 CULTURE BLOOD [BC] Stat CULTURE BLOOD [BC] Stat 04/26/19 02:16 Oxygen Therapy Adult [Oxygen Therapy, ED] [RC] ASDIRECTED
[2019-04-26] MEDS ORDERED: Sodium Chloride 0.9% 1,000 ML IV SCH (00:15)
[2019-04-26 01:15] LABS: BLOOD UREA NITROGEN,BUN 23 mg/dL (7.0-18.0); CARBON DIOXIDE,CO2 27.8 mmol/L (21.0-32.0); CHLORIDE,CL 105 mmol/L (98-107); GLUCOSE RANDOM 112 mg/dL (74-106); POTASSIUM,K 4.3 mmol/L (3.5-5.1); SODIUM,NA 142 mmol/L (136-145)
[2019-04-26] MEDS ORDERED: Ondansetron 4 MG/2 ML SDV IVPUSH ONE (01:34)
[2019-04-26] MEDS ORDERED: Iopamidol 755 MG/ML 500 ML Multipack Bottle IVPUSH ONE (02:08)
--- NOTE | 2019-04-26 02:48 | CT ---
INDICATION: Chest pain TECHNIQUE: CT chest PE was acquired with 80 cc Isovue 370 intravenous contrast. COMPARISON: Chest CT 04/10/2019 FINDINGS: Heart and vasculature: Contrast opacification of the pulmonary arterial tree is adequate. No sign of pulmonary embolism. Heart size is normal. Thoracic aorta and pulmonary artery are normal in caliber.Mild coronary atherosclerosis. Lungs and pleural: Mild centrilobular emphysema. Minimal areas of centrilobular nodularity within the right lung. Lymph nodes/mediastinum: Right hilar lymph node measures 11 millimeters and subcarinal lymph node measures 10 millimeters. Chest wall: No masses. Upper abdomen: Normal. Bones: Unremarkable for age. IMPRESSION: 1. No evidence of pulmonary embolus. 2. Minimal centrilobular nodularity within the right lung, significantly improved compared to the study of 16 days prior. 3. Mild centrilobular emphysema. Please note that all CT scans at this facility use dose modulation, iterative reconstruction, and/or weight-based dosing when appropriate to reduce radiation dose to as low as reasonably achievable. Dictated by Antonino Dutton MD @ Apr 26 2019 2:39AM Signed by Dr. Antonino Dutton @ Apr 26 2019 2:46AM
[2019-04-26] MEDS ORDERED: Sodium Chloride 0.9% 10 ML Syringe FLUSH PRN (05:45)
[2019-04-26] MEDS ORDERED: Sodium Chloride 0.9% 2.5 ML Syringe FLUSH PRN (05:45)
[2019-04-26] MEDS ORDERED: Albuterol/Ipratropium 3.0-0.5 MG/3 ML Neb Soln NEB SCH (06:00)
[2019-04-26] MEDS ORDERED: Azithromycin 500 MG in Sodium Chloride 0.9% 250 ML IV ONE (06:00)
[2019-04-26] MEDS ORDERED: Acetaminophen 325 MG Tab PO PRN (08:03)
[2019-04-26] MEDS ORDERED: Ondansetron 4 MG/2 ML SDV IVPUSH PRN (08:03)
--- NOTE | 2019-04-26 08:53 | PCM.HP.2 ---
H&P History of Present Illness - General Date of Service: 04/26/19 Admit Problem/Dx: Admission Diagnosis/Problem Admission Diagnosis/Problem Hypoxemia, asthma exacerbation Source of Information: Patient History Limitations: Reports: No Limitations - History of Present Illness Initial Comments - Free Text/Narative: This 53 year old female with pmh of asthma, former tobacco use and recent admission for CAP presented to the ED with concerns of cough and shortness of breath. She reports she took Levaquin as prescribed after discharge and felt ok for a few days then the shortness of breath returned. She is concerned about the carpets and floors where she lives if she is allergic. She just moved to this town home prior to last admission and since then her breathing is worse. She denies fevers and chills. Clear phlegm with congested cough along with significant wheezing. She reports pain to R shoulder blade from coughing. NO chest pain. No abdominal pain, no urinary concerns. Reports mild sinus congestion and mild sore throat as well. Has history of smoking, but quit 20+ years ago. No alcohol use andno recreational drug use. She is post 6 mo. In the ED mild leukocytosis noted at 13,000. BUN ad Cr mildly elevated, [address] of chest revealed evidence of pulmonary embolus, minimal centrilobular nodularity within the right lung, significantly improved from previous study 16 days ago. Mild centrilobular emphysema. She was given nebulizers and Solumedrol, she reported significant improved in breathing after Solumedrol. She also noted to be hypoxic on RA mid 80s. She was admitted observation for acute hypoxic respiratory failure and asthma exacerbation. Upper Chest Pain Score (Numeric/FACES): 6 - Related Data Allergies/Adverse Reactions: Allergies Allergy/AdvReac Type Severity Reaction Status Date / Time adhesive tape Allergy Severe Redness Verified 04/26/19 04:39 Penicillins Allergy Rash Verified 04/26/19 00:40 Home Medications: Home Meds Albuterol Sulfate [Proair Hfa] 2 puff INH Q6HR PRN 04/10/19 [History] Ascorbic Acid [Vitamin C] 1,000 mg PO DAILY 04/10/19 [History] Biotin 5,000 mcg PO DAILY 04/10/19 [History] Cholecalciferol (Vitamin D3) [Vitamin D] 5,000 units PO DAILY 04/10/19 [History] Ibuprofen 150 mg PO Q6HR PRN 04/10/19 [History] Albuterol [Proventil Neb Soln] 0.63 mg NEB Q6H PRN #10 neb 04/13/19 [Rx] Ipratropium [Atrovent HFA] 1 puff INH Q6H 10 Days #1 inhaler 04/13/19 [Rx] Past Medical History HEENT History: Reports: Impaired Vision Cardiovascular History: Reports: Heart Murmur. Denies: CAD, Heart Valve Replacement, MS Respiratory History: Reports: Asthma, Pneumonia, Recurrent GRAIN OILSEED OR PASTURE GROWER History: Reports: Ectopic , Spontaneous Endocrine/Metabolic History: Reports: Diabetes, Gestational - Infectious Disease History Infectious Disease History: Reports: Scarlet Fever - Past Surgical History HEENT Surgical History: Reports: None Cardiovascular Surgical History: Reports: None Respiratory Surgical History: Reports: None Female Surgical History: Reports: Oophorectomy Other Female Surgeries/Procedures: R fallopian tube and ovary removal Endocrine Surgical History: Reports: None Social & Family History - Family History Family Medical History: Noncontributory - Tobacco Use Smoking Status *Q: Former Smoker Years of Tobacco use: 2 Packs/Tins Daily: 0.5 Used Tobacco, but Quit: Yes Month/Year Tobacco Last Used: 1995 Second Hand Smoke Exposure: No - Caffeine Use Caffeine Use: Reports: Coffee, Energy Drinks Caffeine Use Comment: 2-6 cups/day, redbulls - Recreational Drug Use Recreational Drug Use: No - Living Situation & Occupation Living situation: Reports: , with Family H&P Review of Systems - Review of Systems: Review Of Systems: See Below General: Reports: Malaise, Fatigue. Denies: Fever, Chills HEENT: Reports: Sinus Congestion, Sore Throat. Denies: Headaches Pulmonary: Reports: Shortness of Breath, Wheezing, Cough, Sputum (clear) Cardiovascular: Reports: No Symptoms. Denies: Chest Pain Gastrointestinal: Reports: No Symptoms. Denies: Abdominal Pain, Black Stool, Bloody Stool, Nausea, Vomiting Genitourinary: Reports: No Symptoms. Denies: Dysuria, Frequency, Burning Musculoskeletal: Reports: Shoulder Pain (R shoulder pain with coughing.) Skin: Reports: No Symptoms Psychiatric: Reports: No Symptoms Neurological: Reports: No Symptoms Hematologic/Lymphatic: Reports: No Symptoms Immunologic: Reports: No Symptoms Exam - Exam Exam: See Below - Vital Signs Vital Signs: Last Vital Signs Temp 97.3 F 04/26/19 07:54 Pulse 88 04/26/19 07:54 Resp 20 04/26/19 07:54 BP 107/58 L 04/26/19 07:54 Pulse Ox 95 04/26/19 07:54 Weight: 81.737 kg - Exam Quality Assessment: Supplemental Oxygen General: Alert, Oriented, Cooperative HEENT: Conjunctiva Clear, Mucosa Moist & [place], Posterior Pharynx Clear Neck: Supple Lungs: Wheezing (significant expiratory wheezing with very little air flow noted with breathing.). No: Normal Respiratory Effort (dyspne noted ) GI/Abdominal Exam: Normal Bowel Sounds, Soft, Non-Tender Back Exam: Normal Inspection, Full Range of Motion Extremities: Normal Inspection, Normal Range of Motion, Non-Tender, No Pedal Edema Neuro Extensive - Mental Status: Alert, Oriented x3, Normal Mood/Affect - Patient Data Lab Results Last 24 hrs: Laboratory Results - last 24 hr 04/26/19 04/26/19 04/26/19 Range/Units 00:23 00:23 00:23 WBC 13.59 H (4.0-11.0) K/uL RBC 4.69 (4.30-5.90) M/uL Hgb 13.6 (12.0-16.0) g/dL Hct 42.6 (36.0-46.0) % MCV 90.8 (80.0-98.0) fL MCH 29.0 (27.0-32.0) pg MCHC 31.9 (31.0-37.0) g/dL RDW Std Deviation 46.1 (28.0-62.0) fl RDW Coeff of Sammy 14 (11.0-15.0) % Plt Count 392 (150-400) K/uL MPV 9.60 (7.40-12.00) fL Neut % (Auto) 55.8 (48.0-80.0) % Lymph % (Auto) 30.0 (16.0-40.0) % [place] % (Auto) 6.8 (0.0-15.0) % Eos % (Auto) 6.6 (0.0-7.0) % Baso % (Auto) 0.8 (0.0-1.5) % Neut # (Auto) 7.6 H (1.4-5.7) K/uL Lymph # (Auto) 4.1 H (0.6-2.4) K/uL [place] # (Auto) 0.9 H (0.0-0.8) K/uL Eos # (Auto) 0.9 H (0.0-0.7) K/uL Baso # (Auto) 0.1 (0.0-0.1) K/uL Nucleated RBC % /100WBC Nucleated RBCs # K/uL INR ABG pH (7.35-7.45) ABG pCO2 (35-45) mmHG ABG pO2 (75-100) mmHG ABG HCO3 (22-26) mEq/L ABG Total CO2 ABG Base Excess (-2.0-2.0) Lactate (0.20-2.00) mmol/L Sodium 142 (136-145) mmol/L Potassium 4.3 (3.5-5.1) mmol/L Chloride 105 (98-107) mmol/L Carbon Dioxide 27.8 (21.0-32.0) mmol/L BUN 23 H (7.0-18.0) mg/dL Creatinine 1.2 H (0.6-1.0) mg/dL Est Cr Clr Drug Dosing 47.89 mL/min Estimated GFR (MDRD) 47.4 ml/min Glucose 112 H (74-106) mg/dL Calcium 8.5 (8.5-10.1) mg/dL Total Bilirubin 0.2 (0.2-1.0) mg/dL AST 19 (15-37) IU/L ALT 22 (14-63) IU/L Alkaline Phosphatase 83 (46-116) U/L Troponin I < 0.050 (0.000-0.056) ng/mL B-Natriuretic Peptide 4 (<100) PG/ML Total Protein 6.8 (6.4-8.2) g/dL Albumin 3.2 L (3.4-5.0) g/dL Globulin 3.6 (2.6-4.0) g/dL Albumin/Globulin Ratio 0.9 (0.9-1.6) 04/26/19 04/26/19 04/26/19 Range/Units 00:23 00:23 01:15 WBC (4.0-11.0) K/uL RBC (4.30-5.90) M/uL Hgb (12.0-16.0) g/dL Hct (36.0-46.0) % MCV (80.0-98.0) fL MCH (27.0-32.0) pg MCHC (31.0-37.0) g/dL RDW Std Deviation (28.0-62.0) fl RDW Coeff of Sammy (11.0-15.0) % Plt Count (150-400) K/uL MPV (7.40-12.00) fL Neut % (Auto) (48.0-80.0) % Lymph % (Auto) (16.0-40.0) % [place] % (Auto) (0.0-15.0) % Eos % (Auto) (0.0-7.0) % Baso % (Auto) (0.0-1.5) % Neut # (Auto) (1.4-5.7) K/uL Lymph # (Auto) (0.6-2.4) K/uL [place] # (Auto) (0.0-0.8) K/uL Eos # (Auto) (0.0-0.7) K/uL Baso # (Auto) (0.0-0.1) K/uL Nucleated RBC % /100WBC Nucleated RBCs # K/uL INR 0.96 ABG pH 7.400 (7.35-7.45) ABG pCO2 43 (35-45) mmHG ABG pO2 56 L (75-100) mmHG ABG HCO3 27 H (22-26) mEq/L ABG Total CO2 24.1 ABG Base Excess 1.6 (-2.0-2.0) Lactate 0.8 (0.20-2.00) mmol/L Sodium (136-145) mmol/L Potassium (3.5-5.1) mmol/L Chloride (98-107) mmol/L Carbon Dioxide (21.0-32.0) mmol/L BUN (7.0-18.0) mg/dL Creatinine (0.6-1.0) mg/dL Est Cr Clr Drug Dosing mL/min Estimated GFR (MDRD) ml/min Glucose (74-106) mg/dL Calcium (8.5-10.1) mg/dL Total Bilirubin (0.2-1.0) mg/dL AST (15-37) IU/L ALT (14-63) IU/L Alkaline Phosphatase (46-116) U/L Troponin I (0.000-0.056) ng/mL B-Natriuretic Peptide (<100) PG/ML Total Protein (6.4-8.2) g/dL Albumin (3.4-5.0) g/dL Globulin (2.6-4.0) g/dL Albumin/Globulin Ratio (0.9-1.6) 04/26/19 Range/Units 08:21 WBC 9.30 (4.0-11.0) K/uL RBC 4.54 (4.30-5.90) M/uL Hgb 13.3 (12.0-16.0) g/dL Hct 41.5 (36.0-46.0) % MCV 91.4 (80.0-98.0) fL MCH 29.3 (27.0-32.0) pg MCHC 32.0 (31.0-37.0) g/dL RDW Std Deviation 47.4 (28.0-62.0) fl RDW Coeff of Sammy 14 (11.0-15.0) % Plt Count 363 (150-400) K/uL MPV 9.80 (7.40-12.00) fL Neut % (Auto) 89.0 H (48.0-80.0) % Lymph % (Auto) 10.5 L (16.0-40.0) % [place] % (Auto) 0.2 (0.0-15.0) % Eos % (Auto) 0.0 (0.0-7.0) % Baso % (Auto) 0.3 (0.0-1.5) % Neut # (Auto) 8.3 H (1.4-5.7) K/uL Lymph # (Auto) 1.0 (0.6-2.4) K/uL [place] # (Auto) 0.0 (0.0-0.8) K/uL Eos # (Auto) 0.0 (0.0-0.7) K/uL Baso # (Auto) 0.0 (0.0-0.1) K/uL Nucleated RBC % 0.0 /100WBC Nucleated RBCs # 0 K/uL INR ABG pH (7.35-7.45) ABG pCO2 (35-45) mmHG ABG pO2 (75-100) mmHG ABG HCO3 (22-26) mEq/L ABG Total CO2 ABG Base Excess (-2.0-2.0) Lactate (0.20-2.00) mmol/L Sodium (136-145) mmol/L Potassium (3.5-5.1) mmol/L Chloride (98-107) mmol/L Carbon Dioxide (21.0-32.0) mmol/L BUN (7.0-18.0) mg/dL Creatinine (0.6-1.0) mg/dL Est Cr Clr Drug Dosing mL/min Estimated GFR (MDRD) ml/min Glucose (74-106) mg/dL Calcium (8.5-10.1) mg/dL Total Bilirubin (0.2-1.0) mg/dL AST (15-37) IU/L ALT (14-63) IU/L Alkaline Phosphatase (46-116) U/L Troponin I (0.000-0.056) ng/mL B-Natriuretic Peptide (<100) PG/ML Total Protein (6.4-8.2) g/dL Albumin (3.4-5.0) g/dL Globulin (2.6-4.0) g/dL Albumin/Globulin Ratio (0.9-1.6) Result Diagrams: 04/26/19 08:21 04/26/19 08:21 - Problem List (1) Acute respiratory failure with hypoxia SNOMED Code(s): 20323351, 283036447 ICD Code: J96.01 - ACUTE RESPIRATORY FAILURE WITH HYPOXIA Status: Acute Current Visit: Yes (2) Asthma exacerbation SNOMED Code(s): 629844493 ICD Code: J45.901 - UNSPECIFIED ASTHMA WITH (ACUTE) EXACERBATION Status: Acute Current Visit: Yes Qualifiers: Asthma severity: mild Asthma persistence: persistent Qualified Code(s): J45.31 - Mild persistent asthma with (acute) exacerbation (3) History of pneumonia SNOMED Code(s): 201329971 ICD Code: Z87.01 - PERSONAL HISTORY OF PNEUMONIA (RECURRENT) Status: Chronic Current Visit: Yes Problem List Initiated/Reviewed/Updated: Yes Orders Last 24hrs: Active Orders 24 hr Category Date Time Status Patient Status [ADT] Stat ADT 04/26/19 03:53 Active Ambulate [RC] ASDIRECTED Care 04/26/19 08:03 Active EKG Documentation Completion [RC] STAT Care 04/26/19 00:07 Active Intake and Output [RC] QSHIFT Care 04/26/19 08:03 Active Oxygen Therapy Adult [Oxygen Therapy, ED] [RC] Care 04/26/19 02:16 Active ASDIRECTED Oxygen Therapy [RC] PRN Care 04/26/19 08:03 Active RT Aerosol Therapy [RC] ASDIRECTED Care 04/26/19 00:09 Active RT Aerosol Therapy [RC] ASDIRECTED Care 04/26/19 05:44 Active RT Post Treatment Assessment [RC] Click to Edit Care 04/26/19 08:47 Ordered RT Pre-Treatment Assessment [RC] Click to Edit Care 04/26/19 08:47 Ordered Up ad Lala [RC] ASDIRECTED Care 04/26/19 08:03 Active VTE/DVT Education [RC] PER UNIT ROUTINE Care 04/26/19 08:03 Active Vital Signs [RC] Q4H Care 04/26/19 08:03 Active Respiratory Care Assess and Treatment [CONS] Routine Cons 04/26/19 08:03 Active Regular Diet [DIET] Diet 04/26/19 Breakfast Active BMP [BASIC METABOLIC PANEL,BMP] [CHEM] Routine Lab 04/26/19 08:21 Received CULTURE BLOOD [BC] Stat Lab 04/26/19 00:58 Received CULTURE BLOOD [BC] Stat Lab 04/26/19 00:58 Received Acetaminophen [Tylenol] Med 04/26/19 08:03 Active 650 mg PO Q4H PRN Albuterol/Ipratropium [DuoNeb 3.0-0.5 MG/3 ML] Med 04/26/19 10:00 Ordered 3 ml NEB Q4HRRT Azithromycin [Zithromax] Med 04/27/19 09:00 Active 500 mg PO Q24H Benzonatate [Tessalon Perles] Med 04/26/19 14:00 Ordered 100 mg PO TID Fluticasone/Salmeterol [Advair Diskus 250-50] Med 04/26/19 09:00 Ordered 1 puff INH BID Ondansetron [Zofran] Med 04/26/19 08:03 Active 4 mg IVPUSH Q4H PRN Sodium Chloride 0.9% [Normal Saline] 1,000 ml Med 04/26/19 00:15 Active IV STAT Sodium Chloride 0.9% [Saline Flush] Med 04/26/19 05:45 Active 10 ml FLUSH ASDIRECTED PRN Sodium Chloride 0.9% [Saline Flush] Med 04/26/19 05:45 Active 2.5 ml FLUSH ASDIRECTED PRN methylPREDNISolone Sod Succ [Solu-MEDROL] Med 04/26/19 08:15 Active 125 mg IVPUSH Q8H Blood Culture x2 Reflex Set [OM.PC] Stat Oth 04/26/19 00:08 Ordered Saline Lock Insert [OM.PC] Routine Oth 04/26/19 05:45 Ordered Resuscitation Status Routine Resus Stat 04/26/19 08:03 Ordered Medication Orders Acetaminophen (Tylenol) 650 mg PO Q4H PRN PRN Reason: Pain (mild 1-3) Albuterol/Ipratropium (Duoneb 3.0-0.5 Mg/3 Ml) 3 ml NEB Q4HRRT ANASTASIA Azithromycin (Zithromax) 500 mg PO Q24H ANASTASIA Benzonatate (Tessalon Perles) 100 mg PO TID ANASTASIA Sodium Chloride (Normal Saline) 1,000 mls @ 125 mls/hr IV STAT ANASTASIA Last Infusion: 04/26/19 01:34 Dose: 999 mls/hr Admin: 04/26/19 00:24 Dose: 125 mls/hr Methylprednisolone Sodium Succinate (Solu-Medrol) 125 mg IVPUSH Q8H ANASTASIA Ondansetron HCl (Zofran) 4 mg IVPUSH Q4H PRN PRN Reason: Nausea Fluticasone/Salmeterol (Advair Diskus 250-50) 1 puff INH BID ANASTASIA Sodium Chloride (Saline Flush) 10 ml FLUSH ASDIRECTED PRN PRN Reason: Keep Vein Open Sodium Chloride (Saline Flush) 2.5 ml FLUSH ASDIRECTED PRN PRN Reason: Keep Vein Open Assessment/Plan Comment:: This 53 year old female admitted with acute hypoxic respiratory failure and asthma exacerbation 1. Acute hypoxic respiratory failure and asthma exacerbation: Continue Azithromycin 500 mg PO. Leukocytosis improved. Continue Solu-medrol 125 mg TID IV for now. Increased frequency of nebulizers to every 4 hours. encourage IS. Advair 150/50 BID. Oxygen PRN, wean as possible to keep sats above 90%. Will add Singulair and Loratadine, and Flonase as well. She recently moved into town house and is concerned carpets are making her breathing worse. Nodule noted last admission is decreasing in size, she was made aware of this. She will need PFT as outpatient to further evaluate asthma. VTE Prophylaxis: SCDs and ambulation Dispo: 1-2 days - Mortality Measure Prognosis:: Good
[2019-04-26] MEDS ORDERED: Azithromycin 250 MG Tab PO SCH (09:00)
[2019-04-26] MEDS ORDERED: Fluticasone/Salmeterol 250-50 MCG Inhalation Powder 14/Diskus INH SCH (09:00)
[2019-04-26] MEDS: methylPREDNISolone Sodium Succinate 125 MG/2 ML SDV IVPUSH SCH ×3 (09:02→23:42)
[2019-04-26 09:05] LABS: CARBON DIOXIDE,CO2 25.1 mmol/L (21.0-32.0); POTASSIUM,K 4.5 mmol/L (3.5-5.1)
[2019-04-26] MEDS: Albuterol/Ipratropium 3.0-0.5 MG/3 ML Neb Soln NEB SCH ×4 (09:50→21:30)
[2019-04-26] MEDS: Fluticasone/Salmeterol 250-50 MCG Inhalation Powder 14/Diskus INH SCH ×2 (10:08→21:36)
[2019-04-26] MEDS: Fluticasone Propionate Nasal Spray 16 GM Bottle NASBOTH SCH (10:40)
[2019-04-26] MEDS: Loratadine 10 MG Tab PO SCH (10:42)
[2019-04-26] MEDS: Benzonatate 100 MG Cap PO SCH ×2 (14:04→21:28)
[2019-04-26] MEDS ORDERED: Ibuprofen 400 MG Tab PO PRN (14:28)
[2019-04-26] MEDS ORDERED: Montelukast 10 MG Tab PO SCH (21:00)
[2019-04-27] MEDS: Albuterol/Ipratropium 3.0-0.5 MG/3 ML Neb Soln NEB SCH ×4 (02:02→13:52)
[2019-04-27] MEDS: Benzonatate 100 MG Cap PO SCH (06:24)
[2019-04-27 07:00] LABS: BLOOD UREA NITROGEN,BUN 17 mg/dL (7.0-18.0); CARBON DIOXIDE,CO2 26.2 mmol/L (21.0-32.0); CHLORIDE,CL 107 mmol/L (98-107); GLUCOSE RANDOM 157 mg/dL (74-106); POTASSIUM,K 4.5 mmol/L (3.5-5.1); SODIUM,NA 144 mmol/L (136-145)
[2019-04-27] MEDS ORDERED: Ketorolac 10 MG Tab PO SCH (08:00)
[2019-04-27] MEDS: methylPREDNISolone Sodium Succinate 125 MG/2 ML SDV IVPUSH SCH (08:27)
[2019-04-27] MEDS: Loratadine 10 MG Tab PO SCH (08:27)
[2019-04-27] MEDS: Fluticasone Propionate Nasal Spray 16 GM Bottle NASBOTH SCH (08:28)
[2019-04-27] MEDS: Fluticasone/Salmeterol 250-50 MCG Inhalation Powder 14/Diskus INH SCH (08:28)
--- NOTE | 2019-04-27 08:31 | PCM.PN ---
- Patient Data Vitals - Most Recent: Last Vital Signs Temp 36.5 C 04/27/19 04:00 Pulse 88 04/27/19 04:00 Resp 18 04/27/19 04:00 BP 100/64 04/27/19 04:00 Pulse Ox 93 L 04/27/19 04:00 Weight - Most Recent: 81.737 kg I&O - Last 24 Hours: Intake & Output 04/26/19 04/27/19 04/27/19 22:59 06:59 14:59 Intake Total 1000 1200 Output Total 900 1450 Balance 100 -250 Lab Results Last 24 Hours: Laboratory Results - last 24 hr 04/26/19 04/26/19 04/27/19 Range/Units 08:21 08:21 06:00 WBC 9.30 19.18 H (4.0-11.0) K/uL RBC 4.54 4.41 (4.30-5.90) M/uL Hgb 13.3 12.7 (12.0-16.0) g/dL Hct 41.5 40.5 (36.0-46.0) % MCV 91.4 91.8 (80.0-98.0) fL MCH 29.3 28.8 (27.0-32.0) pg MCHC 32.0 31.4 (31.0-37.0) g/dL RDW Std Deviation 47.4 50.1 (28.0-62.0) fl RDW Coeff of Sammy 14 15 (11.0-15.0) % Plt Count 363 394 (150-400) K/uL MPV 9.80 10.10 (7.40-12.00) fL Neut % (Auto) 89.0 H 93.1 H (48.0-80.0) % Lymph % (Auto) 10.5 L 5.1 L (16.0-40.0) % [place] % (Auto) 0.2 1.7 (0.0-15.0) % Eos % (Auto) 0.0 0.0 (0.0-7.0) % Baso % (Auto) 0.3 0.1 (0.0-1.5) % Neut # (Auto) 8.3 H 17.9 H (1.4-5.7) K/uL Lymph # (Auto) 1.0 1.0 (0.6-2.4) K/uL [place] # (Auto) 0.0 0.3 (0.0-0.8) K/uL Eos # (Auto) 0.0 0.0 (0.0-0.7) K/uL Baso # (Auto) 0.0 0.0 (0.0-0.1) K/uL Nucleated RBC % 0.0 0.0 /100WBC Nucleated RBCs # 0 0 K/uL Sodium 142 (136-145) mmol/L Potassium 4.5 (3.5-5.1) mmol/L Chloride 107 (98-107) mmol/L Carbon Dioxide 25.1 (21.0-32.0) mmol/L BUN 19 H (7.0-18.0) mg/dL Creatinine 1.2 H (0.6-1.0) mg/dL Est Cr Clr Drug Dosing 47.89 mL/min Estimated GFR (MDRD) 47.4 ml/min Glucose 171 H (74-106) mg/dL Calcium 8.4 L (8.5-10.1) mg/dL 04/27/19 Range/Units 06:00 WBC (4.0-11.0) K/uL RBC (4.30-5.90) M/uL Hgb (12.0-16.0) g/dL Hct (36.0-46.0) % MCV (80.0-98.0) fL MCH (27.0-32.0) pg MCHC (31.0-37.0) g/dL RDW Std Deviation (28.0-62.0) fl RDW Coeff of Sammy (11.0-15.0) % Plt Count (150-400) K/uL MPV (7.40-12.00) fL Neut % (Auto) (48.0-80.0) % Lymph % (Auto) (16.0-40.0) % [place] % (Auto) (0.0-15.0) % Eos % (Auto) (0.0-7.0) % Baso % (Auto) (0.0-1.5) % Neut # (Auto) (1.4-5.7) K/uL Lymph # (Auto) (0.6-2.4) K/uL [place] # (Auto) (0.0-0.8) K/uL Eos # (Auto) (0.0-0.7) K/uL Baso # (Auto) (0.0-0.1) K/uL Nucleated RBC % /100WBC Nucleated RBCs # K/uL Sodium 144 (136-145) mmol/L Potassium 4.5 (3.5-5.1) mmol/L Chloride 107 (98-107) mmol/L Carbon Dioxide 26.2 (21.0-32.0) mmol/L BUN 17 (7.0-18.0) mg/dL Creatinine 0.9 (0.6-1.0) mg/dL Est Cr Clr Drug Dosing 63.86 mL/min Estimated GFR (MDRD) > 60.0 ml/min Glucose 157 H (74-106) mg/dL Calcium 8.9 (8.5-10.1) mg/dL Andre Results Last 24 Hours: Microbiology 04/26/19 00:58 Aerobic Blood Culture - Preliminary Blood - Venous - Lab Draw NO GROWTH AFTER 1 DAY Anaerobic Blood Culture - Preliminary NO GROWTH AFTER 1 DAY 04/26/19 00:58 Aerobic Blood Culture - Preliminary Blood - Venous NO GROWTH AFTER 1 DAY Anaerobic Blood Culture - Preliminary NO GROWTH AFTER 1 DAY Med Orders - Current: Current Medications Acetaminophen (Tylenol) 650 mg PO Q4H PRN PRN Reason: Pain (mild 1-3) Albuterol/Ipratropium (Duoneb 3.0-0.5 Mg/3 Ml) 3 ml NEB Q4HRRT [facility] Last Admin: 04/27/19 06:06 Dose: 3 ml Azithromycin (Zithromax) 500 mg PO Q24H [facility] Last Admin: 04/27/19 08:27 Dose: 500 mg Benzonatate (Tessalon Perles) 100 mg PO TID [facility] Last Admin: 04/27/19 06:24 Dose: 100 mg Fluticasone Propionate (Flonase) 0 gm NASBOTH DAILY [facility] Last Admin: 04/27/19 08:28 Dose: 1 spray Ibuprofen (Motrin) 400 mg PO Q6H PRN PRN Reason: Pain Last Admin: 04/26/19 20:31 Dose: 400 mg Ketorolac Tromethamine (Toradol) 10 mg PO Q6H [facility] Stop: 05/02/19 08:01 Last Admin: 04/27/19 08:26 Dose: 10 mg Loratadine (Claritin) 10 mg PO DAILY [facility] Last Admin: 04/27/19 08:27 Dose: 10 mg Methylprednisolone Sodium Succinate (Solu-Medrol) 125 mg IVPUSH Q8H [facility] Last Admin: 04/27/19 08:27 Dose: 125 mg Montelukast Sodium (Singulair) 10 mg PO BEDTIME [facility] Last Admin: 04/26/19 20:31 Dose: 10 mg Ondansetron HCl (Zofran) 4 mg IVPUSH Q4H PRN PRN Reason: Nausea Fluticasone/Salmeterol (Advair Diskus 250-50) 1 puff INH BID [facility] Last Admin: 04/27/19 08:28 Dose: 1 inhalation Sodium Chloride (Saline Flush) 10 ml FLUSH ASDIRECTED PRN PRN Reason: Keep Vein Open Sodium Chloride (Saline Flush) 2.5 ml FLUSH ASDIRECTED PRN PRN Reason: Keep Vein Open Discontinued Medications Albuterol/Ipratropium (Duoneb 3.0-0.5 Mg/3 Ml) 3 ml NEB ONETIME ONE Stop: 04/26/19 00:10 Last Admin: 04/26/19 00:14 Dose: 3 ml Albuterol/Ipratropium (Duoneb 3.0-0.5 Mg/3 Ml) 3 ml NEB Q6HRRT [facility] Last Admin: 04/26/19 06:27 Dose: 3 ml Azithromycin (Zithromax) 500 mg PO Q24H [facility] Sodium Chloride (Normal Saline) 1,000 mls @ 125 mls/hr IV STAT [facility] Last Infusion: 04/26/19 01:34 Dose: 999 mls/hr Azithromycin 500 mg/ Sodium (Chloride) 250 mls @ 250 mls/hr IV Q24H [facility] Azithromycin 500 mg/ Sodium (Chloride) 250 mls @ 250 mls/hr IV ONETIME ONE Stop: 04/26/19 06:59 Last Admin: 04/26/19 06:07 Dose: 250 mls/hr Iopamidol (Isovue Multipack-370 (76%)) 80 ml IVPUSH ONETIME ONE Stop: 04/26/19 02:09 Last Admin: 04/26/19 02:08 Dose: 80 ml Methylprednisolone Sodium Succinate (Solu-Medrol) 125 mg IVPUSH ONETIME ONE Stop: 04/26/19 00:13 Last Admin: 04/26/19 00:24 Dose: 125 mg Ondansetron HCl (Zofran) 4 mg IVPUSH ONETIME ONE Stop: 04/26/19 01:35 Last Admin: 04/26/19 01:44 Dose: 4 mg Fluticasone/Salmeterol 250-50 Mcg Inhalation Powder 14/Diskus 1 each INH BID ANASTASIA Last Admin: 04/26/19 09:43 Dose: Not Given - My Orders Last 24 Hours: My Active Orders 04/27/19 08:00 Ketorolac [Toradol] 10 mg PO Q6H - Plan Plan:: This 53 year old female admitted with acute hypoxic respiratory failure and asthma exacerbation 1. Acute hypoxic respiratory failure and asthma exacerbation: Continue Azithromycin 500 mg PO. Leukocytosis improved. Continue Solu-medrol 125 mg TID IV for now. Increased frequency of nebulizers to every 4 hours. encourage IS. Advair 150/50 BID. Oxygen PRN, wean as possible to keep sats above 90%. Will add Singulair and Loratadine, and Flonase as well. She recently moved into [facility] and is concerned carpets are making her breathing worse. Nodule noted last admission is decreasing in size, she was made aware of this. She will need PFT as outpatient to further evaluate asthma. VTE Prophylaxis: SCDs and ambulation Dispo: 1-2 days
[2019-04-27] MEDS ORDERED: Azithromycin 500 MG in Sodium Chloride 0.9% 250 ML IV SCH (09:00)
[2019-04-27] MEDS ORDERED: Azithromycin 250 MG Tab PO SCH (09:00)
--- NOTE | 2019-04-27 12:01 | PCM.DCSUM1 ---
Discharge Summary - Hospital Course HPI Initial Comments: Shortness of breath Diagnosis: Stroke: No - Discharge Data Discharge Date: 04/27/19 Discharge Disposition: Home, Self-Care 01 Condition: Fair - Referral to Home Health Primary Care Physician: PCP None - Patient Summary/Data Consults: Consultations 04/26/19 08:03 Respiratory Care Assess and Treatment [CONS] Routine Hospital Course: The patient is a 53-year-old female who has a past medical history of asthma and a previous admission for community-acquired pneumonia had presented to the emergency department and was admitted on April 26, 2019. The patient had some shortness of breath and a cough associated with this. The chest x-ray and CT exam did show significant improvement and her pneumonia from her previous hospitalization. The patient initially on presentation was noted to have a pulse oximetry of 89% on room air. This had improved to 95% on room air. This had been observed on the monitor as the patient was on continuous pulse oximetry. Blood cultures were reported as no growth after 2 days. The patient also during her hospitalization had been placed on methylprednisolone. The patient's white blood cell count had elevated from normal to 19,000. The patient was discharged from acute hospitalization with azithromycin 500 mg by mouth daily for 5 days. She was also discharged toward all 10 mg every 6 hours as needed for pain and also methylprednisolone Dosepak. The patient should also have a PFT once her pulmonary status is improved to normal. The patient has been recommended to follow-up with her primary care physician. The patient is to have her diet as tolerated. She is also to have activity as tolerated. The patient also has been hemodynamically stable and she has been discharged from acute hospitalization with recommendations listed above. - Patient Instructions Diet: Regular Diet as Tolerated Activity: As Tolerated Other/Special Instructions: There is concern for possible exposure to water/ mold in apartment. Change demarcus if possible - Discharge Plan *PRESCRIPTION DRUG MONITORING PROGRAM REVIEWED*: No *COPY OF PRESCRIPTION DRUG MONITORING REPORT IN PATIENT KEVIN: No Prescriptions/Med Rec: Azithromycin [Zithromax] 500 mg PO Q24H #5 tablet Ketorolac [Toradol] 10 mg PO Q6H PRN #30 tablet PRN Reason: Pain (Moderate 4-6) methylPREDNISolone [Methylprednisolone] 1 package PO ASDIRECTED 6 Days #1 tab.[email or web address] Home Medications: Home Meds Albuterol Sulfate [Proair Hfa] 2 puff INH Q6HR PRN 04/10/19 [History] Ascorbic Acid [Vitamin C] 1,000 mg PO DAILY 04/10/19 [History] Biotin 5,000 mcg PO DAILY 04/10/19 [History] Cholecalciferol (Vitamin D3) [Vitamin D] 5,000 units PO DAILY 04/10/19 [History] Ibuprofen 150 mg PO Q6HR PRN 04/10/19 [History] Albuterol [Proventil Neb Soln] 0.63 mg NEB Q6H PRN #10 neb 04/13/19 [Rx] Ipratropium [Atrovent HFA] 1 puff INH Q6H 10 Days #1 inhaler 04/13/19 [Rx] Azithromycin [Zithromax] 500 mg PO Q24H #5 tablet 04/27/19 [Rx] Ketorolac [Toradol] 10 mg PO Q6H PRN #30 tablet 04/27/19 [Rx] methylPREDNISolone [Methylprednisolone] 1 package PO ASDIRECTED 6 Days #1 tab.ds.pk 04/27/19 [Rx] Patient Handouts: Hypoxia, Hypoxemia, Chronic Obstructive Pulmonary Disease, [id number], Azithromycin tablets, Methylprednisolone tablets, Ketorolac tablets, Healthcare-Associated Pneumonia Referrals: Maykel Stewart MD [Resident] - 05/08/19 3:30 pm - Discharge Summary/Plan Comment DC Time >30 min.: Yes - General Info Date of Service: 04/27/19 Admission Dx/Problem (Free Text: Admission Diagnosis/Problem Admission Diagnosis/Problem Hypoxemia, asthma exacerbation Subjective Update: The patient is doing much better today. She feels like she can go home. She is not on oxygen at the present time. Functional Status: Reports: Pain Controlled - Review of Systems General: Reports: No Symptoms HEENT: Reports: No Symptoms Pulmonary: Reports: No Symptoms Cardiovascular: Reports: No Symptoms Gastrointestinal: Reports: No Symptoms Genitourinary: Reports: No Symptoms Musculoskeletal: Reports: No Symptoms Skin: Reports: No Symptoms Neurological: Reports: No Symptoms Psychiatric: Reports: No Symptoms - Patient Data Vitals - Most Recent: Last Vital Signs Temp 36.1 C 04/27/19 08:00 Pulse 92 04/27/19 08:00 Resp 18 04/27/19 08:00 BP 114/52 L 04/27/19 08:00 Pulse Ox 91 L 04/27/19 08:00 Weight - Most Recent: 81.737 kg I&O - Last 24 hours: Intake & Output 04/26/19 04/27/19 04/27/19 22:59 06:59 14:59 Intake Total 1000 1200 240 Output Total 900 1450 Balance 100 -250 240 Lab Results - Last 24 hrs: Laboratory Results - last 24 hr 04/27/19 04/27/19 Range/Units 06:00 06:00 WBC 19.18 H (4.0-11.0) K/uL RBC 4.41 (4.30-5.90) M/uL Hgb 12.7 (12.0-16.0) g/dL Hct 40.5 (36.0-46.0) % MCV 91.8 (80.0-98.0) fL MCH 28.8 (27.0-32.0) pg MCHC 31.4 (31.0-37.0) g/dL RDW Std Deviation 50.1 (28.0-62.0) fl RDW Coeff of Sammy 15 (11.0-15.0) % Plt Count 394 (150-400) K/uL MPV 10.10 (7.40-12.00) fL Neut % (Auto) 93.1 H (48.0-80.0) % Lymph % (Auto) 5.1 L (16.0-40.0) % [place] % (Auto) 1.7 (0.0-15.0) % Eos % (Auto) 0.0 (0.0-7.0) % Baso % (Auto) 0.1 (0.0-1.5) % Neut # (Auto) 17.9 H (1.4-5.7) K/uL Lymph # (Auto) 1.0 (0.6-2.4) K/uL [place] # (Auto) 0.3 (0.0-0.8) K/uL Eos # (Auto) 0.0 (0.0-0.7) K/uL Baso # (Auto) 0.0 (0.0-0.1) K/uL Nucleated RBC % 0.0 /100WBC Nucleated RBCs # 0 K/uL Sodium 144 (136-145) mmol/L Potassium 4.5 (3.5-5.1) mmol/L Chloride 107 (98-107) mmol/L Carbon Dioxide 26.2 (21.0-32.0) mmol/L BUN 17 (7.0-18.0) mg/dL Creatinine 0.9 (0.6-1.0) mg/dL Est Cr Clr Drug Dosing 63.86 mL/min Estimated GFR (MDRD) > 60.0 ml/min Glucose 157 H (74-106) mg/dL Calcium 8.9 (8.5-10.1) mg/dL JESSIE Results - Last 24 hrs: Microbiology 04/26/19 00:58 Aerobic Blood Culture - Preliminary Blood - Venous - Lab Draw NO GROWTH AFTER 1 DAY Anaerobic Blood Culture - Preliminary NO GROWTH AFTER 1 DAY 04/26/19 00:58 Aerobic Blood Culture - Preliminary Blood - Venous NO GROWTH AFTER 1 DAY Anaerobic Blood Culture - Preliminary NO GROWTH AFTER 1 DAY Med Orders - Current: Current Medications Acetaminophen (Tylenol) 650 mg PO Q4H PRN PRN Reason: Pain (mild 1-3) Albuterol/Ipratropium (Duoneb 3.0-0.5 Mg/3 Ml) 3 ml NEB Q4HRRT [facility] Last Admin: 04/27/19 10:10 Dose: 3 ml Azithromycin (Zithromax) 500 mg PO Q24H [facility] Last Admin: 04/27/19 08:27 Dose: 500 mg Benzonatate (Tessalon Perles) 100 mg PO TID [facility] Last Admin: 04/27/19 06:24 Dose: 100 mg Fluticasone Propionate (Flonase) 0 gm NASBOTH DAILY [facility] Last Admin: 04/27/19 08:28 Dose: 1 spray Ibuprofen (Motrin) 400 mg PO Q6H PRN PRN Reason: Pain Last Admin: 04/26/19 20:31 Dose: 400 mg Ketorolac Tromethamine (Toradol) 10 mg PO Q6H [facility] Stop: 05/02/19 08:01 Last Admin: 04/27/19 08:26 Dose: 10 mg Loratadine (Claritin) 10 mg PO DAILY [facility] Last Admin: 04/27/19 08:27 Dose: 10 mg Methylprednisolone Sodium Succinate (Solu-Medrol) 125 mg IVPUSH Q8H [facility] Last Admin: 04/27/19 08:27 Dose: 125 mg Montelukast Sodium (Singulair) 10 mg PO BEDTIME [facility] Last Admin: 04/26/19 20:31 Dose: 10 mg Ondansetron HCl (Zofran) 4 mg IVPUSH Q4H PRN PRN Reason: Nausea Fluticasone/Salmeterol (Advair Diskus 250-50) 1 puff INH BID [facility] Last Admin: 04/27/19 08:28 Dose: 1 inhalation Sodium Chloride (Saline Flush) 10 ml FLUSH ASDIRECTED PRN PRN Reason: Keep Vein Open Sodium Chloride (Saline Flush) 2.5 ml FLUSH ASDIRECTED PRN PRN Reason: Keep Vein Open Discontinued Medications Albuterol/Ipratropium (Duoneb 3.0-0.5 Mg/3 Ml) 3 ml NEB ONETIME ONE Stop: 04/26/19 00:10 Last Admin: 04/26/19 00:14 Dose: 3 ml Albuterol/Ipratropium (Duoneb 3.0-0.5 Mg/3 Ml) 3 ml NEB Q6HRRT [facility] Last Admin: 04/26/19 06:27 Dose: 3 ml Azithromycin (Zithromax) 500 mg PO Q24H [facility] Sodium Chloride (Normal Saline) 1,000 mls @ 125 mls/hr IV STAT [facility] Last Infusion: 04/26/19 01:34 Dose: 999 mls/hr Azithromycin 500 mg/ Sodium (Chloride) 250 mls @ 250 mls/hr IV Q24H [facility] Azithromycin 500 mg/ Sodium (Chloride) 250 mls @ 250 mls/hr IV ONETIME ONE Stop: 04/26/19 06:59 Last Admin: 04/26/19 06:07 Dose: 250 mls/hr Iopamidol (Isovue Multipack-370 (76%)) 80 ml IVPUSH ONETIME ONE Stop: 04/26/19 02:09 Last Admin: 04/26/19 02:08 Dose: 80 ml Methylprednisolone Sodium Succinate (Solu-Medrol) 125 mg IVPUSH ONETIME ONE Stop: 04/26/19 00:13 Last Admin: 04/26/19 00:24 Dose: 125 mg Ondansetron HCl (Zofran) 4 mg IVPUSH ONETIME ONE Stop: 04/26/19 01:35 Last Admin: 04/26/19 01:44 Dose: 4 mg Fluticasone/Salmeterol 250-50 Mcg Inhalation Powder 14/Diskus 1 each INH BID [facility] Last Admin: 04/26/19 09:43 Dose: Not Given - Exam Quality Assessment: Denies: Supplemental Oxygen General: Reports: Alert, Oriented, Cooperative, No Acute Distress HEENT: Reports: Pupils Equal, Pupils Reactive, EOMI, Mucous Membr. Moist/[place] Neck: Reports: Supple, Trachea Midline Lungs: Reports: Clear to Auscultation, Normal Respiratory Effort Cardiovascular: Reports: Regular Rate, Regular Rhythm GI/Abdominal Exam: Normal Bowel Sounds, Soft, No Distention. No: Guarding, Rigid Back Exam: Reports: Normal Inspection, Full Range of Motion Extremities: Normal Inspection, No Pedal Edema Skin: Reports: Warm, Dry, Intact Neurological: Reports: No New Focal Deficit Psy/Mental Status: Reports: Alert, Normal Affect
== END 2019-04-27 14:16 | disposition home or self-care (01) ==
LOC: MW.ED 23:51 → MW.MS 04-26 03:53
PROVIDERS: ADMIT Internal Medicine; ATTEND Internal Medicine
DX: J96.01 Acute respiratory failure with hypoxia (principal); J45.31 Mild persistent asthma with (acute) exacerbation; Z87.01 Personal history of pneumonia (recurrent); Z79.899 Other long term (current) drug therapy; Z87.891 Personal history of nicotine dependence
CPT/HCPCS: 36415; 36600; 71275; 80048; 80053; 82803; 83605; 83880; 84484; 85025; 85610; 87040; 93005; 94640; 96361; 96374; 96375; 99285; A9270; J0456; J2405; J2930; J7040; J7050; Q9967; 96365; 96376; 99283; G0378; J7620-GY